=== PATIENT | male | born 1960 | race Caucasian/White ===

== ENCOUNTER → 2022-01-24 16:47 | Outpatient (CLI) | payer OTHER, SELFPAY ==
--- NOTE | 2022-01-24 16:54 | DI.RAD.S_ITS ---
PROCEDURE: XR CHEST 2V INDICATIONS: recurring cough, +reflux, +phlegm TECHNIQUE: 2 views of the chest were acquired. COMPARISON: None. FINDINGS: Surgical changes and devices: None. Lungs and pleura: Lungs are clear. No pleural effusions or pneumothorax. Mediastinum: Mediastinal contours are normal. Heart size is normal. Bones and chest wall: No suspicious bony abnormalities. Soft tissues appear unremarkable. IMPRESSION: No acute cardiopulmonary process demonstrated radiographically. Dictated by: Marbin Ramey M.D. on 01/25/2022 at 9:05 Approved by: Marbin Ramey M.D. on 01/25/2022 at 9:05
--- NOTE | 2022-01-24 16:54 | DI.RAD.S_ITS ---
PROCEDURE: XR LUMBAR SPINE 2-3V INDICATIONS: chronic right sided back pain, no sciatica TECHNIQUE: 3 views of the lumbar spine were acquired. COMPARISON: None. FINDINGS: Bones: There are 5 evt-azl-rvtubop lumbar vertebral bodies. Normal spinal alignment. No compression deformities. There is moderate diffuse intervertebral disc space narrowing, osteophytosis, and facet sclerosis. Soft tissues: Overlying bowel gas pattern is normal. No suspicious soft tissue calcifications. IMPRESSION: Moderate degenerative change. No compression deformities. Dictated by: Denita Wallace M.D. on 01/25/2022 at 10:56 Approved by: Denita Wallace M.D. on 01/25/2022 at 10:57
== END ==
PROVIDERS: PCP Pediatrics; Referring Provider Pediatrics; Visit Provider Pediatrics
DX: M54.9 Dorsalgia, unspecified (principal); R05.3 Chronic cough; M47.816 Spondylosis without myelopathy or radiculopathy, lumbar region
CPT/HCPCS: 71046; 72100

== ENCOUNTER → 2022-02-21 10:51 | Outpatient (CLI) | payer OTHER, SELFPAY ==
[2022-02-21 13:58] LABS: COVID19 -Nasal RAPID Negative (Negative)
== END ==
PROVIDERS: PCP Pediatrics; Visit Provider Surgery
DX: Z01.812 Encounter for preprocedural laboratory examination (principal); Z20.822 Contact with and (suspected) exposure to COVID-19
CPT/HCPCS: 87635; C9803

== ENCOUNTER 2022-02-22 13:04 | Day surgery (SDC) | payer OTHER, SELFPAY ==
--- NOTE | 2022-02-22 | PATH_ITS ---
[facility] Accession Number: [id number] . 01 Material submitted: . cecum - CECUM . 01 Diagnosis: Cecum, Biopsy: Tubular adenoma. MRV 02/24/2022 1053 Local . 01 Electronically signed: . Roselia Villanueva MD, Pathologist NPI- [id number] . 01 Gross description: . CECUM: Received in formalin are multiple fragment(s) of gaxiola, soft tissue measuring 0.5 x 0.5 x 0.1 cm in aggregate submitted entirely in 1 cassette(s) /CPE 02/23/2022 0500 Local . 01 Pathologist provided ICD-10: D12.0 . 01 CPT . 337936 Specimen Comment: A courtesy copy of this report has been sent to [phone] Performed at: 01 [facility] [address] [place] [address] [id number] MD Carrington Warner MD Phone: [phone]
[2022-02-22 13:46] VITALS: BMI 33.2
[2022-02-22 13:53] VITALS: BP 140/60; PULSE 63; RESP 12; TEMP 35.9; O2SAT 98
[2022-02-22] MEDS: FLEETS ENEMA 1 EACH PR (13:59)
--- NOTE | 2022-02-22 14:45 | P.HP_ITS ---
History of Present Illness History of Present Illness Date Patient Seen: 02/22/22 Time Patient Seen: 14:45 Chief complaint: SCREENING COLONOSCOPY Narrative: The patient presents for colorectal screening. Previous colonoscopy 7-10 years ago was normal. No personal or family history of colon cancer. On further history denies any recent gastrointestinal symptoms. No nausea, vomiting, abdominal pain, loss of appetite, unexplained weight loss, change in bowel hab its, diarrhea, constipation, melena, hematochezia, or bright red blood per rectum. Patient History Medical History Arthritis Asthma Back pain Chronic cough GERD (gastroesophageal reflux disease) Hypercholesteremia Hypertension MICHELLE (obstructive sleep apnea) Pre-diabetes Family & Social History Social History: household members none Tobacco & Substance use: Smoking Status Never smoker alcohol intake current alcohol intake frequency a few times a week Substance Use Type does not use Meds Home Medications and Allergies Home Medications Medication Instructions Recorded Confirmed Type amlodipine 5 mg tablet 5 mg PO DAILY 01/24/22 02/22/22 History atorvastatin 20 mg tablet 20 mg PO DAILY 01/24/22 02/22/22 History cimetidine 200 mg tablet (Tagamet 200 mg PO BID #60 tabs 01/24/22 02/22/22 Rx HB) loratadine 10 mg tablet (Claritin) 10 mg PO DAILY presumed allergic 01/24/22 02/22/22 Rx drip #30 tabs metformin 1,000 mg tablet 1,000 mg PO BID 01/24/22 02/22/22 History montelukast 10 mg tablet 10 mg PO DAILY 01/24/22 02/22/22 History omega-3 fatty acids [Fish Oil] 1 cap PO DAILY 01/24/22 02/22/22 History sildenafil (pulm.hypertension) 20 20 mg PO TID 01/24/22 02/22/22 History mg tablet trazodone 50 mg tablet 50 mg PO DAILY 01/24/22 01/24/22 History trazodone 50 mg tablet 50 mg PO DAILY 02/22/22 02/22/22 History Allergies Allergy/AdvReac Type Severity Reaction Status Date / Time No Known Drug Allergies Allergy Verified 02/22/22 13:52 Exam Vital Signs (past 8 hours): - 02/22/22 13:53 Temperature 96.7 F L Pulse Rate 63 Respiratory Rate 12 Blood Pressure 140/60 Pulse Oximetry 98 Oxygen Delivery Method Room Air Oxygen Delivery Method Room Air Narrative Exam Narrative: General adult male alert oriented no acute distress Chest nonlabored respiration Abdomen soft nontender nondistended Assessment & Plan Assessment & Plan narrative: The patient requires colorectal screening and colonoscopy is recommended. T echnical details were discussed. Risks, benefits, alternatives explained. Risks including but not limited to myocardial infarction, aspiration, bleeding, pain, missed lesion, incomplete examination, need for further radiographic studies, colonic perforation, and need for major abdominal surgery were discussed. All questions were answered to their satisfaction, and they are in agreement with this plan. Time Spent With Patient Critical Care time: I spent a total of [] minutes of critical care time on this patient's care today; this time is exclusive of procedural time.
--- NOTE | 2022-02-22 14:51 | SUR.PREOP ---
Addendum entered by Barbara Chambers R.N. 02/22/22 14:52: Patient was given the fleets enema as ordered. Results brownish yellow, not clear. Patient state that he did pass formed stool - unable to see it in the bowl. Patient was overheard to tell results to Dr. Aldridge prior to procedure. Original Note: Dr Aldridge informed of patient's intent to take a taxi home and that he states there is someone at home to help him. This was approved by prior to procedure and any medication.
[2022-02-22] MEDS: LACTATED RINGERS 1,000 ML 200 ML IV (15:00)
[2022-02-22] MEDS: fentaNYL 250 MCG/5 ML INJ IV (15:25)
--- NOTE | 2022-02-22 15:27 | PM.OP.COLON ---
Operative Date/Time/Diagnoses Date of procedure: 02/22/22 Time of procedure: 15:27 Pre-op diagnosis: Screening colonoscopy Post-op diagnosis: same Procedure & Clinicians Study performed: Colonoscopy and polypectomy Same procedure as scheduled: Yes Indications: Screening Surgeon: Manolo Aldridge Procedure Notes Procedure in detail: Medications: Conscious sedation using 7mg IV midazolam and 250mcg IV of fentanyl The history and physical was performed/updated and the patient is ASA class is 2. The procedure was discussed in detail with the patient. Potential risks complications including infection, bleeding, missed diagnosis, perforation, need for surgery, and were explained. Their questions were answered and informed consent was obtained. Patient was brought to the procedure room and placed standard monitoring equipment. The patient's vital signs were monitored continuously throughout the entire procedure. Prior to starting time-out was performed. The patient was placed in the left lateral recumbent position. Procedural sedation was administered. Examination began with a thorough inspection of the perianal area there was no evidence of fissures, fistulae, external hemorrhoids or cutaneous malignancy. The colonoscopy scope was then placed into the anal canal and was advanced to the cecum, which was identified by the ileocecal valve, the appendiceal orifice and the confluence of the taenia. The scope was then slowly withdrawn examining colon thoroughly in all directions, irrigating it of any residual stool. FINDINGS 1. Within the ascending colon/cecum there were 3 polyps of approximately 5 mm each which were removed with biopsy forceps. 2. Tortuous colon The patient tolerated the procedure well. They will be discharged once criteria are met. The prep was of fair quality. The withdrawl time was 12 minutes. The sedation time was 35 minutes. Specimen(s): other (Ascending colon polyp) Complications: none Impression: Colonic polyps Post-procedure Recommendations: Colonoscopy in 5 years Disposition: same day surgery
[2022-02-22 15:34] VITALS: BP 134/84; PULSE 63; RESP 16; TEMP 36.2; O2SAT 94
[2022-02-22] MEDS: MIDAZOLAM 5 MG/5 ML VIAL IV (15:35)
[2022-02-22 15:39] VITALS: BP 133/85; PULSE 72; RESP 17; O2SAT 94
[2022-02-22 15:51] VITALS: BP 136/87; PULSE 70; RESP 17; O2SAT 97
== END 2022-02-22 16:22 | disposition home or self-care (01) ==
PROVIDERS: PCP Pediatrics; Referring Provider Surgery; Visit Provider Surgery
PROC: 0DJD8ZZ Inspection of Lower Intestinal Tract, Via Natural or Artificial Opening Endoscopic (ICD-10-PCS; CPT 45378; principal; 2022-02-22 14:30)
DX: Z12.11 Encounter for screening for malignant neoplasm of colon (principal); D12.0 Benign neoplasm of cecum; K21.9 Gastro-esophageal reflux disease without esophagitis; G47.33 Obstructive sleep apnea (adult) (pediatric); I10 Essential (primary) hypertension; E78.00 Pure hypercholesterolemia, unspecified; R73.03 Prediabetes; Z79.84 Long term (current) use of oral hypoglycemic drugs
CPT/HCPCS: 45380; 99152; 99153; J2250; J3010

== ENCOUNTER → 2022-07-12 07:19 | Outpatient (CLI) | payer OTHER, SELFPAY ==
[2022-07-12 08:09] LABS: Hematocrit 39.8 % (41-53); Hemoglobin 13.7 g/dL (13.5-17.5); Mean Corpuscular HGB Conc 34.5 % (30-36); Mean Corpuscular Hemoglobin 30.6 PG (26-34); Mean Corpuscular Volume 88.8 fL (80-100); Platelet Count 239 X10^3/uL (150-400); Red Blood Cell Count 4.48 X10^6/uL (4.5-5.9); Red Cell Distribution Width 13.7 % (11.6-14.8); White Blood Cell Count 5.7 X10^3/uL (4.5-11.0)
[2022-07-12 08:29] LABS: HEMOLYSIS < 15 (0-50)
[2022-07-12 08:42] LABS: Alanine Aminotransferase 22 IU/L (<50); Albumin Globulin Ratio 1.6 (1.0-2.8); Alkaline Phosphatase 59 U/L (38-126); Aspartate Aminotransferase 18 IU/L (17-59); Bilirubin Total 0.5 mg/dL (0.2-1.3); Blood Urea Nitrogen 13 mg/dL (9-20); Calcium 8.7 mg/dL (8.4-10.2); Carbon Dioxide 28 mmol/L (22-32); Chloride 100 mmol/L (98-107); Cholesterol 149 mg/dL (140-199); Estimated Glomerular Filt Rate > 60 mL/min (>60); Globulin 2.5 g/dL (1.7-4.1); Glucose 143 mg/dL (80-110); HDL Cholesterol 55 mg/dL (40-60); LDL Cholesterol Calculated 67 mg/dL (<100); Potassium 4.3 mmol/L (3.4-5.1); Sodium 138 mmol/L (137-145); Total Protein 6.5 g/dL (6.3-8.2); Triglycerides 134 mg/dL (35-150)
[2022-07-12 09:24] LABS: TSH w/ Reflex to FT4 1.39 uIU/mL (0.47-4.68)
[2022-07-12 16:21] LABS: Prostate Specific Antigen Scrn 1.59 ng/mL (0.1-4.0)
[2022-07-12 18:03] LABS: Hemoglobin A1C% w Est Avg Glu 6.9 % (4.0-6.0)
== END ==
PROVIDERS: PCP Family Medicine; Referring Provider Family Medicine; Visit Provider Family Medicine
DX: E78.00 Pure hypercholesterolemia, unspecified (principal); I10 Essential (primary) hypertension; R53.83 Other fatigue; R73.03 Prediabetes; Z12.5 Encounter for screening for malignant neoplasm of prostate
CPT/HCPCS: 36415; 80053; 80061; 83036; 84443; 85027; G0103

== ENCOUNTER 2023-01-09 11:45 | Outpatient (RCR) | payer OTHER, SELFPAY ==
--- NOTE | 2022-12-12 10:50 | PT.OIE ---
Current Diagnoses Pain in right hip (12/12/22) Pain in left hip (12/12/22) Low back pain, unspecified (12/12/22) Past Medical History (Last Reviewed 10/17/22 @ 11:43 by PEDRO Saunders) Arthritis Asthma COVID-19 Environmental and seasonal allergies GERD (gastroesophageal reflux disease) Hypercholesteremia Hypertension MICHELLE (obstructive sleep apnea) Pre-diabetes Visit Care Team Role Provider Type Daphnie Ewing DO Attending Provider Physician Family Provider Primary Care Provider Referring Provider Specialty: Medical Address: [address] [place] [address], [address], [place], [address] Email: [email or web address] Physical Therapy Initial Evaluation PT-OP-A Visit Information Start: 12/08/22 18:32 Freq: Status: Active Protocol: Document 12/12/22 10:12 ES (Rec: 12/12/22 10:49 ES [id number]) Out-Patient Physical Therapy Visit Information Visit Information Visit Type Initial Evaluation Visit Note Auth needed after first 6 visits Visit Start Time 09:29 Visit Stop Time 10:10 Total Visit Minutes 41 Visit Number 1/6 Number of GRANITE BLOCK PAVER Visits 0 Evaluation Information Evaluation Date 12/12/22 PT-OP-B Current Condition Start: 12/08/22 18:32 Freq: Status: Active Protocol: Document 12/12/22 10:12 ES (Rec: 12/12/22 10:49 ES [id number]) Current Condition History of Current Condition Onset Date Several years ago Current Complaints R low back and B hip pain History of Current Condition Patient reported he has had back and hip pain for several years now, mostly unchanging. He reported [place] lived [place] about 4 months and would get spasms, but no other specific injury. 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 No hx of surgery. Patient reported his pain is worse with sitting and sleeping, and also with prolonged bending. He is limited to 1 hour of sitting. His pain is typically worst first thing in the morning. Sleeps on a Tempurpedic mattress which helps. He has tried putting pillows between his knees which seems to help but does not do it consistently. Soft chairs are worse than firm chairs. He does aquatic exercise, yoga, and fitness classes regularly. Prior Treatments and Tests Patient reported he went to PT about 8 years ago for this same problem which was helpful . He has a hx of arthritis in B hips but reports no imaging of his back. Treatment Goals Patient/Caregiver Goals To be able to sit on his computer with less pain. To have less pain getting out of bed in the mornings. PT-OP-C Subjective Start: 12/08/22 18:32 Freq: Status: Active Protocol: Document 12/12/22 10:12 ES (Rec: 12/12/22 10:49 ES [id number]) Patient Questionnaires Lower Extremity Functional Scale LEFS Score 64 LEFS Impairment 1 to 19% Impaired (Score 63-79 ) Oswestry Low Back Index Oswestry Score 9 Oswestry Impairment 1 to 19% Impaired (Score 1-19) PT-OP-J Posture/Palpation/Skin Start: 12/08/22 18:32 Freq: Status: Active Protocol: Document 12/12/22 10:12 ES (Rec: 12/12/22 10:49 ES [id number]) Posture Evaluation Position Standing Evaluation View Posterior T-Spine Posture Increased Kyphosis L-Spine Posture Shifted Left Shoulder Posture (L) Rounded,(R) Rounded,(L) Forward,(R) Forward Pelvis Posture Neutral Sitting Evaluation View Lateral T-Spine Posture Increased Kyphosis L-Spine Posture Decreased Lordosis Pelvis Posture Posterior Tilted Hip Posture (L) Flexed,(R) Flexed Skin Assessment Other Assessments Skin Assessment Comments Scar from tick infection at R lateral trunk just below ribs PT-OP-K Range of Motion Start: 12/08/22 18:32 Freq: Status: Active Protocol: Document 12/12/22 10:12 ES (Rec: 12/12/22 10:49 ES [id number]) Lumbar Spine Range of Motion Lumbar Spine Active Percentage Testing Position Standing Flexion 25 Extension 15 Rotation Left 25 Rotation Right 25 Lateral Flexion Left 10 Lateral Flexion Right 10 Comments R lumbar pain increased slightly with all movements. Tends to move in hips vs trunk . Limited thoracic motion noted also. PT-OP-Q Treatments Start: 12/08/22 18:32 Freq: Status: Active Protocol: Document 12/12/22 10:12 ES (Rec: 12/12/22 10:49 ES [id number]) Therapeutic Activity Therapeutic Activity 2 Name Log roll training Comments Instructed in log roll technique for getting in/out of bed with cues for reducing twisting/bending and abdominal strain. Patient demonstrated and handout provided. 1 Name Posture training Comments Instructed patient in correct sitting posture at computer to reduce posterior pelvic tilt and improve lordosis, with use of pillow behind back to assist. Patient demonstrated. Education on consistent use of pillow(s) between knees when lying on side. Attempted pillow under side but was not helpful. Patient demonstrated and handout provided. PT-OP-T Assessment and Plan Start: 12/08/22 18:32 Freq: Status: Active Protocol: Document 12/12/22 10:12 ES (Rec: 12/12/22 10:49 ES [id number]) Physical Therapy Assessment Rehab Potential Rehabilitation Potential Good Evaluation Complexity Number of Personal Factors/Comorbidities 0 Number of Body Systems Impaired 1-2 Clinical Presentation at Evaluation Stable Impairments Impairments Functional Activities,Pain, Posture,ROM,Soft Tissue Mobility,Strength Goals Three Impairment Bed mobility Bench Worker Goal (LTG) Patient will be able to get out of bed using log roll technique with 2/10 pain or less. LTG Duration 6 weeks Two Impairment ROM and strength Short Term Goal (STG) Patient will be independent in HEP for spine/hip mobility and core strength. STG Duration 4 weeks One Impairment Sitting tolerance Usp Goal (LTG) Patient will be able to sit for 1 hour with 2/10 pain at worst. LTG Duration 6 weeks Assessment Summary Assessment Patient is a 62 year old male who presents with R low back and B hip pain. He demonstrates non-ideal sitting and sleeping posture and body mechanics for bed mobility, general decreased ROM thoracic and lumbar spine, and decreased core strength when attempting supine to sit. He is functionally limited with sitting, sleeping, getting out of bed, and bending. He will benefit from PT to address these problems in order to reduce pain with daily activity. Physical Therapy Plan Frequency and Duration Frequency of Treatment 1x/Week Duration of treatment (weeks) 6 Plan of Care Start Date 12/12/22 Plan of Care End Date 01/23/23
--- NOTE | 2022-12-12 10:56 | PT.OIE ---
Current Diagnoses Pain in right hip (12/12/22) Pain in left hip (12/12/22) Low back pain, unspecified (12/12/22) Past Medical History (Last Reviewed 10/17/22 @ 11:43 by PEDRO Saunders) Arthritis Asthma COVID-19 Environmental and seasonal allergies GERD (gastroesophageal reflux disease) Hypercholesteremia Hypertension MICHELLE (obstructive sleep apnea) Pre-diabetes Visit Care Team Role Provider Type Daphnie Ewing DO Attending Provider Physician Family Provider Primary Care Provider Referring Provider Specialty: Medical Address: [address] [place] [address], [address], [place], [address] Email: [email or web address] Physical Therapy Initial Evaluation PT-OP-A Visit Information Start: 12/08/22 18:32 Freq: Status: Active Protocol: Document 12/12/22 10:12 ES (Rec: 12/12/22 10:49 ES [id number]) Out-Patient Physical Therapy Visit Information Visit Information Visit Type Initial Evaluation Visit Note Auth needed after first 6 visits Visit Start Time 09:29 Visit Stop Time 10:10 Total Visit Minutes 41 Visit Number 1/6 Number of OLERICULTURIST Visits 0 Evaluation Information Evaluation Date 12/12/22 PT-OP-B Current Condition Start: 12/08/22 18:32 Freq: Status: Active Protocol: Document 12/12/22 10:12 ES (Rec: 12/12/22 10:49 ES [id number]) Current Condition History of Current Condition Onset Date Several years ago Current Complaints R low back and B hip pain History of Current Condition Patient reported he has had back and hip pain for several years now, mostly unchanging. He reported he lived on a boat for about 4 months and would get spasms, but no other specific injury. 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 No hx of surgery. Patient reported his pain is worse with sitting and sleeping, and also with prolonged bending. He is limited to 1 hour of sitting. His pain is typically worst first thing in the morning. Sleeps on a Tempurpedic mattress which helps. He has tried putting pillows between his knees which seems to help but does not do it consistently. Soft chairs are worse than firm chairs. He does aquatic exercise, yoga, and fitness classes regularly. Prior Treatments and Tests Patient reported he went to PT about 8 years ago for this same problem which was helpful . He has a hx of arthritis in B hips but reports no imaging of his back. Treatment Goals Patient/Caregiver Goals To be able to sit on his computer with less pain. To have less pain getting out of bed in the mornings. PT-OP-C Subjective Start: 12/08/22 18:32 Freq: Status: Active Protocol: Document 12/12/22 10:12 ES (Rec: 12/12/22 10:49 ES [id number]) Patient Questionnaires Lower Extremity Functional Scale LEFS Score 64 LEFS Impairment 1 to 19% Impaired (Score 63-79 ) Oswestry Low Back Index Oswestry Score 9 Oswestry Impairment 1 to 19% Impaired (Score 1-19) PT-OP-J Posture/Palpation/Skin Start: 12/08/22 18:32 Freq: Status: Active Protocol: Document 12/12/22 10:12 ES (Rec: 12/12/22 10:49 ES [id number]) Posture Evaluation Position Standing Evaluation View Posterior T-Spine Posture Increased Kyphosis L-Spine Posture Shifted Left Shoulder Posture (L) Rounded,(R) Rounded,(L) Forward,(R) Forward Pelvis Posture Neutral Sitting Evaluation View Lateral T-Spine Posture Increased Kyphosis L-Spine Posture Decreased Lordosis Pelvis Posture Posterior Tilted Hip Posture (L) Flexed,(R) Flexed Skin Assessment Other Assessments Skin Assessment Comments Scar from tick infection at R lateral trunk just below ribs PT-OP-K Range of Motion Start: 12/08/22 18:32 Freq: Status: Active Protocol: Document 12/12/22 10:12 ES (Rec: 12/12/22 10:49 ES [id number]) Lumbar Spine Range of Motion Lumbar Spine Active Percentage Testing Position Standing Flexion 25 Extension 15 Rotation Left 25 Rotation Right 25 Lateral Flexion Left 10 Lateral Flexion Right 10 Comments R lumbar pain increased slightly with all movements. Tends to move in hips vs trunk . Limited thoracic motion noted also. PT-OP-Q Treatments Start: 12/08/22 18:32 Freq: Status: Active Protocol: Document 12/12/22 10:12 ES (Rec: 12/12/22 10:49 ES [id number]) Therapeutic Activity Therapeutic Activity 2 Name Log roll training Comments Instructed in log roll technique for getting in/out of bed with cues for reducing twisting/bending and abdominal strain. Patient demonstrated and handout provided. 1 Name Posture training Comments Instructed patient in correct sitting posture at computer to reduce posterior pelvic tilt and improve lordosis, with use of pillow behind back to assist. Patient demonstrated. Education on consistent use of pillow(s) between knees when lying on side. Attempted pillow under side but was not helpful. Patient demonstrated and handout provided. PT-OP-T Assessment and Plan Start: 12/08/22 18:32 Freq: Status: Active Protocol: Document 12/12/22 10:12 ES (Rec: 12/12/22 10:49 ES [id number]) Physical Therapy Assessment Rehab Potential Rehabilitation Potential Good Evaluation Complexity Number of Personal Factors/Comorbidities 0 Number of Body Systems Impaired 1-2 Clinical Presentation at Evaluation Stable Impairments Impairments Functional Activities,Pain, Posture,ROM,Soft Tissue Mobility,Strength Goals Three Impairment Bed mobility Funding Specialist Goal (LTG) Patient will be able to get out of bed using log roll technique with 2/10 pain or less. LTG Duration 6 weeks Two Impairment ROM and strength Short Term Goal (STG) Patient will be independent in HEP for spine/hip mobility and core strength. STG Duration 4 weeks One Impairment Sitting tolerance Fdc Goal (LTG) Patient will be able to sit for 1 hour with 2/10 pain at worst. LTG Duration 6 weeks Assessment Summary Assessment Patient is a 62 year old male who presents with R low back and B hip pain. He demonstrates non-ideal sitting and sleeping posture and body mechanics for bed mobility, general decreased ROM thoracic and lumbar spine, and decreased core strength when attempting supine to sit. He is functionally limited with sitting, sleeping, getting out of bed, and bending. He will benefit from PT to address these problems in order to reduce pain with daily activity. Physical Therapy Plan Frequency and Duration Frequency of Treatment 1x/Week Duration of treatment (weeks) 6 Plan of Care Start Date 12/12/22 Plan of Care End Date 01/23/23 Therapeutic Interventions Therapeutic Interventions Home Exercise Program,Joint Mobilizations,Manual Therapy, Neuromuscular Re-education, Patient/Caregiver Education, Self-Care/Home Management,Soft Tissue Mobilization, Therapeutic Activities, Therapeutic Exercises Modalities Hot Packs Next Visit Focus/Plan Next Note Type Treatment Note Next Visit Plan Review posture/bed mobility. Assess ROM/strength and progress HEP.
--- NOTE | 2022-12-12 10:56 | PT.OPPOC ---
Physical, Occupational & Speech Therapy At [facility] Current Diagnoses Pain in right hip (12/12/22) Pain in left hip (12/12/22) Low back pain, unspecified (12/12/22) Visit Care Team Role Provider Type Daphnie Ewing DO Attending Provider Physician Family Provider Primary Care Provider Referring Provider Specialty: Medical Address: [address] [place] [address], [address], [place], [address] Email: [email or web address] Plan Of Care PT-OP-T Assessment and Plan Start: 12/08/22 18:32 Freq: Status: Active Protocol: Document 12/12/22 10:12 ES (Rec: 12/12/22 10:49 ES [id number]) Physical Therapy Assessment Rehab Potential Rehabilitation Potential Good Evaluation Complexity Number of Personal Factors/Comorbidities 0 Number of Body Systems Impaired 1-2 Clinical Presentation at Evaluation Stable Impairments Impairments Functional Activities,Pain, Posture,ROM,Soft Tissue Mobility,Strength Goals Three Impairment Bed mobility Astrophysics Teacher Goal (LTG) Patient will be able to get out of bed using log roll technique with 2/10 pain or less. LTG Duration 6 weeks Two Impairment ROM and strength Short Term Goal (STG) Patient will be independent in HEP for spine/hip mobility and core strength. STG Duration 4 weeks One Impairment Sitting tolerance Astrophysics Teacher Goal (LTG) Patient will be able to sit for 1 hour with 2/10 pain at worst. LTG Duration 6 weeks Assessment Summary Assessment Patient is a 62 year old male who presents with R low back and B hip pain. He demonstrates non-ideal sitting and sleeping posture and body mechanics for bed mobility, general decreased ROM thoracic and lumbar spine, and decreased core strength when attempting supine to sit. He is functionally limited with sitting, sleeping, getting out of bed, and bending. He will benefit from PT to address these problems in order to reduce pain with daily activity. Physical Therapy Plan Frequency and Duration Frequency of Treatment 1x/Week Duration of treatment (weeks) 6 Plan of Care Start Date 12/12/22 Plan of Care End Date 01/23/23 Therapeutic Interventions Therapeutic Interventions Home Exercise Program,Joint Mobilizations,Manual Therapy, Neuromuscular Re-education, Patient/Caregiver Education, Self-Care/Home Management,Soft Tissue Mobilization, Therapeutic Activities, Therapeutic Exercises Modalities Hot Packs Next Visit Focus/Plan Next Note Type Treatment Note Next Visit Plan Review posture/bed mobility. Assess ROM/strength and progress HEP. Plan of Care Dates Plan of Care Start Date 12/12/22 Plan of Care End Date 01/23/23 Electronically Signed by: Emerald Cason, PT 12/12/22 6264 If you are in agreement with this Plan of Care, please return a signed and dated copy. I have reviewed this Plan of Care and certify that the skilled therapy services above are required to meet the patient?s needs. Physician Signature Date Printed Name and Credentials Clinical Instructor Signature Printed Name and Credentials
--- NOTE | 2022-12-12 15:11 | PT.OIE ---
Current Diagnoses Pain in right hip (12/12/22) Pain in left hip (12/12/22) Low back pain, unspecified (12/12/22) Past Medical History (Last Reviewed 10/17/22 @ 11:43 by PEDRO Saunders) Arthritis Asthma COVID-19 Environmental and seasonal allergies GERD (gastroesophageal reflux disease) Hypercholesteremia Hypertension MICHELLE (obstructive sleep apnea) Pre-diabetes Visit Care Team Role Provider Type Daphnie Ewing DO Attending Provider Physician Family Provider Primary Care Provider Referring Provider Specialty: Medical Address: [address] [place] [address], [address], [place], [address] Email: [email or web address] Physical Therapy Initial Evaluation PT-OP-A Visit Information Start: 12/08/22 18:32 Freq: Status: Active Protocol: Document 12/12/22 10:12 ES (Rec: 12/12/22 10:49 ES [id number]) Out-Patient Physical Therapy Visit Information Visit Information Visit Type Initial Evaluation Visit Start Time 09:29 Visit Stop Time 10:10 Total Visit Minutes 41 Visit Number 08/21 Number of ACCELERATOR OPERATOR Visits 0 Evaluation Information Evaluation Date 12/12/22 PT-OP-B Current Condition Start: 12/08/22 18:32 Freq: Status: Active Protocol: Document 12/12/22 10:12 ES (Rec: 12/12/22 10:49 ES [id number]) Current Condition History of Current Condition Onset Date Several years ago Current Complaints R low back and B hip pain History of Current Condition Patient reported he has had back and hip pain for several years now, mostly unchanging. He reported [place] and would get spasms, but no other specific injury. 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 No hx of surgery. Patient reported his pain is worse with sitting and sleeping, and also with prolonged bending. He is limited to 1 hour of sitting. His pain is typically worst first thing in the morning. Sleeps on a Tempurpedic mattress which helps. He has tried putting pillows between his knees which seems to help but does not do it consistently. Soft chairs are worse than firm chairs. He does aquatic exercise, yoga, and fitness classes regularly. Prior Treatments and Tests Patient reported he went to PT about 8 years ago for this same problem which was helpful . He has a hx of arthritis in B hips but reports no imaging of his back. Treatment Goals Patient/Caregiver Goals To be able to sit on his computer with less pain. To have less pain getting out of bed in the mornings. PT-OP-C Subjective Start: 12/08/22 18:32 Freq: Status: Active Protocol: Document 12/12/22 10:12 ES (Rec: 12/12/22 10:49 ES [id number]) Patient Questionnaires Lower Extremity Functional Scale LEFS Score 64 LEFS Impairment 1 to 19% Impaired (Score 63-79 ) Oswestry Low Back Index Oswestry Score 9 Oswestry Impairment 1 to 19% Impaired (Score 1-19) PT-OP-J Posture/Palpation/Skin Start: 12/08/22 18:32 Freq: Status: Active Protocol: Document 12/12/22 10:12 ES (Rec: 12/12/22 10:49 ES [id number]) Posture Evaluation Position Standing Evaluation View Posterior T-Spine Posture Increased Kyphosis L-Spine Posture Shifted Left Shoulder Posture (L) Rounded,(R) Rounded,(L) Forward,(R) Forward Pelvis Posture Neutral Sitting Evaluation View Lateral T-Spine Posture Increased Kyphosis L-Spine Posture Decreased Lordosis Pelvis Posture Posterior Tilted Hip Posture (L) Flexed,(R) Flexed Skin Assessment Other Assessments Skin Assessment Comments Scar from tick infection at R lateral trunk just below ribs PT-OP-K Range of Motion Start: 12/08/22 18:32 Freq: Status: Active Protocol: Document 12/12/22 10:12 ES (Rec: 12/12/22 10:49 ES [id number]) Lumbar Spine Range of Motion Lumbar Spine Active Percentage Testing Position Standing Flexion 25 Extension 15 Rotation Left 25 Rotation Right 25 Lateral Flexion Left 10 Lateral Flexion Right 10 Comments R lumbar pain increased slightly with all movements. Tends to move in hips vs trunk . Limited thoracic motion noted also. PT-OP-Q Treatments Start: 12/08/22 18:32 Freq: Status: Active Protocol: Document 12/12/22 10:12 ES (Rec: 12/12/22 10:49 ES [id number]) Therapeutic Activity Therapeutic Activity 2 Name Log roll training Comments Instructed in log roll technique for getting in/out of bed with cues for reducing twisting/bending and abdominal strain. Patient demonstrated and handout provided. 1 Name Posture training Comments Instructed patient in correct sitting posture at computer to reduce posterior pelvic tilt and improve lordosis, with use of pillow behind back to assist. Patient demonstrated. Education on consistent use of pillow(s) between knees when lying on side. Attempted pillow under side but was not helpful. Patient demonstrated and handout provided. PT-OP-T Assessment and Plan Start: 12/08/22 18:32 Freq: Status: Active Protocol: Document 12/12/22 10:12 ES (Rec: 12/12/22 10:49 ES [id number]) Physical Therapy Assessment Rehab Potential Rehabilitation Potential Good Evaluation Complexity Number of Personal Factors/Comorbidities 0 Number of Body Systems Impaired 1-2 Clinical Presentation at Evaluation Stable Impairments Impairments Functional Activities,Pain, Posture,ROM,Soft Tissue Mobility,Strength Goals Three Impairment Bed mobility Print Machine Operator Goal (LTG) Patient will be able to get out of bed using log roll technique with 2/10 pain or less. LTG Duration 6 weeks Two Impairment ROM and strength Short Term Goal (STG) Patient will be independent in HEP for spine/hip mobility and core strength. STG Duration 4 weeks One Impairment Sitting tolerance Print Machine Operator Goal (LTG) Patient will be able to sit for 1 hour with 2/10 pain at worst. LTG Duration 6 weeks Assessment Summary Assessment Patient is a 62 year old male who presents with R low back and B hip pain. He demonstrates non-ideal sitting and sleeping posture and body mechanics for bed mobility, general decreased ROM thoracic and lumbar spine, and decreased core strength when attempting supine to sit. He is functionally limited with sitting, sleeping, getting out of bed, and bending. He will benefit from PT to address these problems in order to reduce pain with daily activity. Physical Therapy Plan Frequency and Duration Frequency of Treatment 1x/Week Duration of treatment (weeks) 6 Plan of Care Start Date 12/12/22 Plan of Care End Date 01/23/23 Therapeutic Interventions Therapeutic Interventions Home Exercise Program,Joint Mobilizations,Manual Therapy, Neuromuscular Re-education, Patient/Caregiver Education, Self-Care/Home Management,Soft Tissue Mobilization, Therapeutic Activities, Therapeutic Exercises Modalities Hot Packs Next Visit Focus/Plan Next Note Type Treatment Note Next Visit Plan Review posture/bed mobility. Assess ROM/strength and progress HEP.
--- NOTE | 2022-12-19 14:00 | PT.OTN ---
Current Diagnoses Pain in right hip (12/19/22) Pain in left hip (12/19/22) Low back pain, unspecified (12/19/22) Physical Therapy Treatment Note PT-OP-A Visit Information Start: 12/08/22 18:32 Freq: Status: Active Protocol: Document 12/19/22 10:49 ES (Rec: 12/19/22 12:34 ES [id number]) Out-Patient Physical Therapy Visit Information Visit Information Visit Type Treatment Note Visit Start Time 11:54 Visit Stop Time 12:30 Total Visit Minutes 36 Visit Number 2/ Number of CPC CODER Visits 0 Evaluation Information Evaluation Date 12/12/22 PT-OP-C Subjective Start: 12/08/22 18:32 Freq: Status: Active Protocol: Document 12/19/22 10:49 ES (Rec: 12/19/22 12:34 ES [id number]) OP-PT Subjective Patient Comments Patient Comments Patient reported that using the pillow between the knees and log roll have been helping with pain in the morning. Put a pillow behind his back in his chair and that seems to help. Patient reported his pain is overall less, with fewer incidences of pain. Patient stated that when he's in the pool he has increased pain with jarring motions, such as doing jumping jacks. Patient Reported Progress Improving PT-OP-M Strength Start: 12/08/22 18:32 Freq: Status: Active Protocol: Document 12/19/22 10:49 ES (Rec: 12/19/22 13:53 ES [id number]) Trunk Strength Trunk Manual Muscle Testing Core Stabilization Decreased lower abdominal control noted with bridging, LE movement Comments Lower abdominals 1/5 Hip Strength Hip Manual Muscle Testing Right Extension (S1) 4 Good Abduction 4- Good- Left Extension (S1) 4- Good- Abduction 3+ Fair+ PT-OP-Q Treatments Start: 12/08/22 18:32 Freq: Status: Active Protocol: Document 12/19/22 10:49 ES (Rec: 12/19/22 13:53 ES [id number]) Therapeutic Exercises Supine Exercises 1 Supine Exercise Name Bridging with hip abduction Resistance Blue band Reps/Minutes [id number] Comments Instructed for home Sidelying Exercises 1 Sidelying Exercise Name Open book Reps/Minutes 3x30s Comments Instructed for home Other Exercises 1 Other Exercise Name Aquatic exercise education Comments Instruction to monitor for hip vs spine movement in pool PT-OP-T Assessment and Plan Start: 12/08/22 18:32 Freq: Status: Active Protocol: Document 12/19/22 10:49 ES (Rec: 12/19/22 12:34 ES [id number]) Physical Therapy Assessment Goals Three Impairment Bed mobility Quilt Maker Goal (LTG) Patient will be able to get out of bed using log roll technique with 2/10 pain or less. LTG Duration 6 weeks Two Impairment ROM and strength Short Term Goal (STG) Patient will be independent in HEP for spine/hip mobility and core strength. STG Duration 4 weeks One Impairment Sitting tolerance Longterm Goal (LTG) Patient will be able to sit for 1 hour with 2/10 pain at worst. LTG Duration 6 weeks Progress Towards Goals Progress Towards Goals Progressing Toward Goals Assessment Summary Assessment Patient demonstrated decreased core strength and stabilization, decreased L>R glute strength, and decreased length L hip flexors as evidenced by lumbar rotation and hip flexion during prone knee bend. Patient able to perform new ex's without increase in pain. He will benefit from further PT to assess and progress HEP to improve spinal flexibility, core strength, and hip strength to reduce pain. Physical Therapy Plan Next Visit Focus/Plan Next Note Type Treatment Note Next Visit Plan Review HEP additions; progress glute strength, add hip flexor stretch as indicated.
--- NOTE | 2022-12-26 12:27 | PT.OTN ---
Current Diagnoses Pain in right hip (12/26/22) Pain in left hip (12/26/22) Low back pain, unspecified (12/26/22) Physical Therapy Treatment Note PT-OP-A Visit Information Start: 12/08/22 18:32 Freq: Status: Active Protocol: Document 12/26/22 10:32 ES (Rec: 12/26/22 12:26 ES [id number]) Out-Patient Physical Therapy Visit Information Visit Information Visit Type Treatment Note Visit Start Time 11:42 Visit Stop Time 12:20 Total Visit Minutes 38 Visit Number 3/15 Number of CLAM DIGGER Visits 0 PT-OP-C Subjective Start: 12/08/22 18:32 Freq: Status: Active Protocol: Document 12/26/22 10:32 ES (Rec: 12/26/22 12:26 ES [id number]) OP-PT Subjective Patient Comments Patient Comments Patient reported that he continues to be having less pain, and the exercises have been helpful. Wants to go over the new open book exercise again to make sure he's doing it right. Will be traveling to [facility] after the next visit which is scheduled for 2 weeks from today. Patient Reported Progress Improving PT-OP-Q Treatments Start: 12/08/22 18:32 Freq: Status: Active Protocol: Document 12/26/22 10:32 ES (Rec: 12/26/22 12:26 ES [id number]) Therapeutic Exercises Supine Exercises 3 Supine Exercise Name Supine HS stretch Side bilateral Reps/Minutes 3x30s Comments Added to HEP (see handout) 2 Supine Exercise Name Figure 4 stretch Side bilateral Reps/Minutes 3x30s Comments Added to HEP (see handout) Sidelying Exercises 1 Sidelying Exercise Name Open book Side bilateral Reps/Minutes x30s Comments Reviewed; patient demonstrated , cued for positioning PT-OP-T Assessment and Plan Start: 12/08/22 18:32 Freq: Status: Active Protocol: Document 12/26/22 10:32 ES (Rec: 12/26/22 12:26 ES [id number]) Physical Therapy Assessment Goals Three Impairment Bed mobility Mcc Goal (LTG) Patient will be able to get out of bed using log roll technique with 2/10 pain or less. LTG Duration 6 weeks Two Impairment ROM and strength Short Term Goal (STG) Patient will be independent in HEP for spine/hip mobility and core strength. STG Duration 4 weeks One Impairment Sitting tolerance Senior Principal Goal (LTG) Patient will be able to sit for 1 hour with 2/10 pain at worst. LTG Duration 6 weeks Progress Towards Goals Progress Towards Goals Progressing Toward Goals Assessment Summary Assessment Patient demonstrated decreased flexibility of L>R piriformis and HS, with early pelvic posterior and lateral tilt with hip flexion and passive SLR which is likely contributing to increased back pain with sitting. He was able to achieve stretch without pain with new stretches for home. He is making good progress toward goals, and may be appropriate to d/c to independent program at next visit if all goals met . Physical Therapy Plan Next Visit Focus/Plan Next Note Type Discharge Summary Next Visit Plan Patient will be leaving for [facility] after next visit; plan to d/c to independent program.
--- NOTE | 2023-01-09 12:22 | PT.OPDS ---
Current Diagnoses Pain in right hip (01/09/23) Pain in left hip (01/09/23) Low back pain, unspecified (01/09/23) Visit Care Team Role Provider Type Daphnie Ewing DO Attending Provider Physician Family Provider Primary Care Provider Referring Provider Specialty: Medical Address: [address] [place] [address], [address], [place], [address] Email: [email or web address] Visit Number Visit Number 11/19 Discharge Summary PT-OP-C Subjective Start: 12/08/22 18:32 Freq: Status: Active Protocol: Document 01/09/23 11:46 ES (Rec: 01/09/23 12:22 ES [id number]) OP-PT Subjective Patient Comments Patient Comments Patient reports that overall things are going well. Has been more active lately and has been doing his exercises. Noticed that he didn't wake up due to his pain at all last night. Still has some pain every once in a while with sitting on soft couches, 2-3/ 10 after 2 hours. Able to sit in his chair at home for at least an hour without pain. Is leaving on a trip next week and will be carrying luggage and sitting on trains. Patient Reported Progress Improving Patient Questionnaires Oswestry Low Back Index Oswestry Score 6 Oswestry Impairment 1 to 19% Impaired (Score 1-19) PT-OP-T Assessment and Plan Start: 12/08/22 18:32 Freq: Status: Active Protocol: Document 01/09/23 11:46 ES (Rec: 01/09/23 12:22 ES [id number]) Physical Therapy Assessment Goals Three Impairment Bed mobility Pool Coordinator Goal (LTG) Patient will be able to get out of bed using log roll technique with 2/10 pain or less. LTG Duration 6 weeks (Met 01/09/23) Two Impairment ROM and strength Short Term Goal (STG) Patient will be independent in HEP for spine/hip mobility and core strength. STG Duration 4 weeks (Met 01/09/23) One Impairment Sitting tolerance Halfway Goal (LTG) Patient will be able to sit for 1 hour with 2/10 pain at worst. LTG Duration 6 weeks (Met 01/09/23) Progress Towards Goals Progress Towards Goals Goals Met Assessment Summary Assessment Patient demonstrates decreased pain, improved sitting tolerance, and good compliance with HEP. He scored lower on Oswestry indicating improved function. He was able to demonstrate lifting mechanics with improved hip hinge and lordosis with today's training . He has met all goals and is appropriate to d/c at this time. Physical Therapy Plan Discharge Physical Therapy Discharge Reasons Goals Met
--- NOTE | 2023-01-09 12:25 | PT.OTN ---
Current Diagnoses Pain in right hip (01/09/23) Pain in left hip (01/09/23) Low back pain, unspecified (01/09/23) Physical Therapy Treatment Note PT-OP-A Visit Information Start: 12/08/22 18:32 Freq: Status: Active Protocol: Document 01/09/23 11:46 ES (Rec: 01/09/23 12:22 ES [id number]) Out-Patient Physical Therapy Visit Information Visit Information Visit Type Discharge Summary Visit Start Time 11:45 Visit Stop Time 12:14 Total Visit Minutes 29 Visit Number 4/15 Number of CYBER INCIDENT ANALYST Visits 0 PT-OP-C Subjective Start: 12/08/22 18:32 Freq: Status: Active Protocol: Document 01/09/23 11:46 ES (Rec: 01/09/23 12:22 ES [id number]) OP-PT Subjective Patient Comments Patient Comments Patient reports that overall things are going well. Has been more active lately and has been doing his exercises. Noticed that he didn't wake up due to his pain at all last night. Still has some pain every once in a while with sitting on soft couches, 2-3/ 10 after 2 hours. Able to sit in his chair at home for at least an hour without pain. Is leaving on a trip next week and will be carrying luggage and sitting on trains. Patient Reported Progress Improving Patient Questionnaires Oswestry Low Back Index Oswestry Score 6 Oswestry Impairment 1 to 19% Impaired (Score 1-19) PT-OP-Q Treatments Start: 12/08/22 18:32 Freq: Status: Active Protocol: Document 01/09/23 11:46 ES (Rec: 01/09/23 12:22 ES [id number]) Neuro Re-Education Treatment Movement Re-Education Movement Re-education Activities Lifting mechanics training for floor to waist lift with up to 20lbs with cues for maintaining lordosis using hip hinge. Training for getting in/out of car with maintaining lordosis . Training for lifting bags up/ down stairs with cues for avoiding twisting and sidebending. PT-OP-T Assessment and Plan Start: 12/08/22 18:32 Freq: Status: Active Protocol: Document 01/09/23 11:46 ES (Rec: 01/09/23 12:22 ES [id number]) Physical Therapy Assessment Goals Three Impairment Bed mobility Centrifugal Chiller Technician Goal (LTG) Patient will be able to get out of bed using log roll technique with 2/10 pain or less. LTG Duration 6 weeks (Met 01/09/23) Two Impairment ROM and strength Short Term Goal (STG) Patient will be independent in HEP for spine/hip mobility and core strength. STG Duration 4 weeks (Met 01/09/23) One Impairment Sitting tolerance Centrifugal Chiller Technician Goal (LTG) Patient will be able to sit for 1 hour with 2/10 pain at worst. LTG Duration 6 weeks (Met 01/09/23) Progress Towards Goals Progress Towards Goals Goals Met Assessment Summary Assessment Patient demonstrates decreased pain, improved sitting tolerance, and good compliance with HEP. He scored lower on Oswestry indicating improved function. He was able to demonstrate lifting mechanics with improved hip hinge and lordosis with today's training . He has met all goals and is appropriate to d/c at this time. Physical Therapy Plan Discharge Physical Therapy Discharge Reasons Goals Met
== END 2023-01-10 12:03 | disposition home or self-care (01) ==
LOC: PHYS 11:45
PROVIDERS: Family Provider Family Medicine; PCP Family Medicine; Referring Provider Family Medicine; Visit Provider Family Medicine
DX: M25.551 Pain in right hip (principal); M25.552 Pain in left hip; M54.50 Low back pain, unspecified
CPT/HCPCS: 97110; 97112; 97161; 97530

== ENCOUNTER → 2023-10-12 07:11 | Outpatient (CLI) | payer OTHER, SELFPAY ==
[2023-10-12 07:38] LABS: Add Manual Diff / Slide Review NO; Basophils Absolute Auto 0 /uL (0-100); Basophils Percent Auto 0.6 % (0-2); Eosinophils Absolute Auto 100 /uL (0-450); Eosinophils Percent Auto 1.9 % (2-4); Hematocrit 38.4 % (41-53); Hemoglobin 13.4 g/dL (13.5-17.5); Lymphocytes Absolute Auto 1600 /uL (1100-4500); Lymphocytes Percent Auto 30.9 % (25-40); Mean Corpuscular HGB Conc 34.8 % (30-36); Mean Corpuscular Hemoglobin 31.5 PG (26-34); Mean Corpuscular Volume 90.4 fL (80-100); Monocytes Absolute Auto 400 /uL (0-900); Monocytes Percent Auto 7.8 % (3-14); Neutrophils Absolute Auto 3100 /uL (1500-7000); Neutrophils Percent Auto 58.8 % (50-75); Platelet Count 223 X10^3/uL (150-400); Red Blood Cell Count 4.25 X10^6/uL (4.5-5.9); Red Cell Distribution Width 13.7 % (11.6-14.8); White Blood Cell Count 5.2 X10^3/uL (4.5-11.0)
[2023-10-12 07:58] LABS: Alanine Aminotransferase 25 IU/L (<50); Albumin 3.8 g/dL (3.5-5.0); Albumin Globulin Ratio 1.5 (1.0-2.8); Alkaline Phosphatase 60 U/L (38-126); Aspartate Aminotransferase 22 IU/L (17-59); BUN Creatinine Ratio 15.8 (6-22); Bilirubin Total 0.7 mg/dL (0.2-1.3); Blood Urea Nitrogen 12 mg/dL (9-20); Calcium 9.2 mg/dL (8.4-10.2); Carbon Dioxide 28 mmol/L (22-32); Chloride 106 mmol/L (98-107); Cholesterol 153 mg/dL (140-199); Estimated Glomerular Filt Rate > 60 mL/min (>60); Globulin 2.6 g/dL (1.7-4.1); Glucose 133 mg/dL (80-110); HDL Cholesterol 56 mg/dL (40-60); HEMOLYSIS < 15 (0-50); LDL Cholesterol Calculated 77 mg/dL (<100); Potassium 4.3 mmol/L (3.4-5.1); Sodium 140 mmol/L (137-145); Total Protein 6.4 g/dL (6.3-8.2); Triglycerides 99 mg/dL (35-150)
[2023-10-12 08:15] LABS: High Sensitivity CRP - Cardiac 3.3 mg/L (1.0-3.0)
[2023-10-12 08:28] LABS: Prostate Specific Antigen Scrn 1.56 ng/mL (0.1-4.0)
[2023-10-12 09:09] LABS: Creatinine Urine Random 124.9 mg/dL
[2023-10-12 09:23] LABS: Microalbumin Urine Random < 0.6 mg/dL (0-1.6)
== END ==
PROVIDERS: Family Provider Family Medicine; PCP Family Medicine; Referring Provider Family Medicine; Visit Provider Family Medicine
DX: Z12.5 Encounter for screening for malignant neoplasm of prostate (principal); D64.9 Anemia, unspecified; E11.40 Type 2 diabetes mellitus with diabetic neuropathy, unspecified; E11.69 Type 2 diabetes mellitus with other specified complication; E11.59 Type 2 diabetes mellitus with other circulatory complications; E66.9 Obesity, unspecified; I10 Essential (primary) hypertension; E78.00 Pure hypercholesterolemia, unspecified; E11.9 Type 2 diabetes mellitus without complications; I15.2 Hypertension secondary to endocrine disorders
CPT/HCPCS: 36415; 80053; 80061; 82043; 82570; 83036; 85025; 86140; G0103

== ENCOUNTER → 2024-09-06 10:27 | Outpatient (CLI) | payer OTHER, SELFPAY ==
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
== END ==
PROVIDERS: Family Provider Family Medicine; PCP Family Medicine; Referring Provider Family Medicine; Visit Provider Family Medicine
DX: Z12.2 Encounter for screening for malignant neoplasm of respiratory organs (principal); R05.3 Chronic cough; X08.8XXS Exposure to other specified smoke, fire and flames, sequela; R91.8 Other nonspecific abnormal finding of lung field
CPT/HCPCS: 71271

== ENCOUNTER → 2024-09-07 11:00 | Outpatient (CLI) | payer OTHER, SELFPAY ==
[2024-09-07 12:42] LABS: Add Manual Diff / Slide Review NO; Basophils Absolute Auto 0 /uL (0-100); Basophils Percent Auto 0.4 % (0-2); Eosinophils Absolute Auto 100 /uL (0-450); Eosinophils Percent Auto 0.9 % (2-4); Hematocrit 40.8 % (41-53); Hemoglobin 13.9 g/dL (13.5-17.5); Lymphocytes Absolute Auto 1400 /uL (1100-4500); Lymphocytes Percent Auto 23.7 % (25-40); Mean Corpuscular HGB Conc 34.2 % (30-36); Mean Corpuscular Hemoglobin 31.3 PG (26-34); Mean Corpuscular Volume 91.4 fL (80-100); Monocytes Absolute Auto 400 /uL (0-900); Monocytes Percent Auto 6.5 % (3-14); Neutrophils Absolute Auto 4100 /uL (1500-7000); Neutrophils Percent Auto 68.5 % (50-75); Platelet Count 256 X10^3/uL (150-400); Red Blood Cell Count 4.46 X10^6/uL (4.5-5.9); Red Cell Distribution Width 13.8 % (11.6-14.8)
[2024-09-07 13:30] LABS: Hemoglobin A1C% w Est Avg Glu 6.8 % (4.0-6.0)
[2024-09-07 13:35] LABS: Alanine Aminotransferase 27 IU/L (<50); Albumin 4.5 g/dL (3.5-5.0); Albumin Globulin Ratio 1.9 (1.0-2.8); Alkaline Phosphatase 70 U/L (38-126); Aspartate Aminotransferase 26 IU/L (17-59); BUN Creatinine Ratio 16.9 (6-22); Bilirubin Total 0.9 mg/dL (0.2-1.3); Blood Urea Nitrogen 13 mg/dL (9-20); Calcium 9.6 mg/dL (8.4-10.2); Carbon Dioxide 29 mmol/L (22-32); Chloride 100 mmol/L (98-107); Cholesterol 174 mg/dL (140-199); Estimated Glomerular Filt Rate > 60 mL/min (>60); Globulin 2.4 g/dL (1.7-4.1); Glucose 124 mg/dL (80-110); HDL Cholesterol 59 mg/dL (40-60); HEMOLYSIS < 15 (0-50); LDL Cholesterol Calculated 88 mg/dL (<100); Potassium 4.3 mmol/L (3.4-5.1); Sodium 136 mmol/L (137-145); Total Protein 6.9 g/dL (6.3-8.2); Triglycerides 133 mg/dL (35-150)
[2024-09-07 14:02] LABS: Prostate Specific Antigen Scrn 2.19 ng/mL (0.1-4.0)
[2024-09-07 14:17] LABS: Creatinine Urine Random 33.26 mg/dL; Protein (Total) Urine Random 10 mg/dL (0-12)
[2024-09-08 08:38] LABS: CRP, High Sensitivity 4.08 mg/L (0.00-3.00)
== END ==
PROVIDERS: Family Provider Family Medicine; PCP Family Medicine; Referring Provider Family Medicine; Visit Provider Family Medicine
DX: D64.9 Anemia, unspecified (principal); E11.69 Type 2 diabetes mellitus with other specified complication; E11.59 Type 2 diabetes mellitus with other circulatory complications; E78.00 Pure hypercholesterolemia, unspecified; I10 Essential (primary) hypertension; Z12.5 Encounter for screening for malignant neoplasm of prostate; I15.2 Hypertension secondary to endocrine disorders; E66.9 Obesity, unspecified
CPT/HCPCS: 36415; 80053; 80061; 82570; 83036; 84156; 85025; 86140; G0103

== ENCOUNTER → 2025-01-16 15:03 | Outpatient (CLI) | payer OTHER, SELFPAY ==
--- NOTE | 2025-01-16 15:05 | DI.RAD.S_ITS ---
PROCEDURE: XR HIP W PEL IF DONE LT 2V INDICATIONS: L HIP INSTABILITY/EVAL ARTHRITIS SEVERITY TECHNIQUE: AP pelvis with lateral view(s) of the left hip(s). COMPARISON: None. FINDINGS: Bones: No fractures or dislocations. 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 Pelvic ring appears intact. No suspicious bony lesions. Degenerative changes of the visualized lower lumbar spine and pubic symphysis. Soft tissues: The visualized bowel gas pattern is normal. No suspicious soft tissue calcifications. IMPRESSION: No acute osseous abnormalities. 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 Dictated by: David Rhodes M.D. on 01/17/2025 at 10:17 Approved by: David Rhodes M.D. on 01/17/2025 at 10:18
== END ==
PROVIDERS: PCP Family Medicine; Referring Provider Family Medicine; Visit Provider Family Medicine
DX: M16.0 Bilateral primary osteoarthritis of hip (principal); M25.352 Other instability, left hip
CPT/HCPCS: 73502

== ENCOUNTER 2025-03-20 15:15 | Outpatient (RCR) | payer OTHER, SELFPAY ==
--- NOTE | 2025-02-06 17:29 | PT.OIE ---
Current Diagnoses Other instability, left hip (02/06/25) Past Medical History (Last Updated 07/12/23 @ 09:05 by Daphnie Ewing DO) Arthritis COVID-19 Environmental and seasonal allergies GERD (gastroesophageal reflux disease) Hypercholesteremia Hypertension MICHELLE (obstructive sleep apnea) Pre-diabetes Visit Care Team Role Provider Type Daphnie Ewing DO Attending Provider Physician Family Provider Primary Care Provider Referring Provider Specialty: Medical Address: [address] [place] [address], [address], [place], [place], [facility] Email: [email or web address] Physical Therapy Initial Evaluation PT-OP-A Visit Information Start: 02/06/25 17:12 Freq: Status: Active Protocol: Document 02/06/25 17:13 KW (Rec: 02/06/25 17:29 KW Laptop) Out-Patient Physical Therapy Visit Information Visit Information Visit Type Initial Evaluation Visit Start Time 14:30 Visit Stop Time 15:15 Visit Number 1 Evaluation Information Evaluation Date 02/06/25 PT-OP-B Current Condition Start: 02/06/25 17:12 Freq: Status: Active Protocol: Document 02/06/25 17:13 KW (Rec: 02/06/25 17:29 KW Laptop) Current Condition History of Current Condition Onset Date chronic Current Complaints R > L hip pain 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 x-rays completed. he participates in water aerobics 5 x a week at local pool enjoys traveling. Prior Functional Status Baseline Function- Independent ADL's Baseline Function- Independent Mobility Personal Factors Other Personal DMII, HTN, back pain, neuropathy Factors That May Effect Therapy/ Recovery PT-OP-C Subjective Start: 02/06/25 17:12 Freq: Status: Active Protocol: Document 02/06/25 17:13 KW (Rec: 02/06/25 17:29 KW Laptop) Patient Questionnaires Lower Extremity Functional Scale LEFS Score 66 LEFS Impairment 1 to 19% Impaired (Score 63-79) OP-PT Pain Assessment Location hips Pain Location lateral hips Details Intensity 3 Description Aching,Burning,Cramping,Dull,Pinching,Pulling,Sharp, Spasm,Tender Frequency Frequent Pain Aggravating Position,Changing Position,ADL's,Activity,Exercise, Factors Standing,Sitting,Walking Pain Alleviating Cold,Heat,Medication Factors Other Pain pool aerobics Alleviating Factors PT-OP-D Balance Start: 02/06/25 17:12 Freq: Status: Active Protocol: Document 02/06/25 17:13 KW (Rec: 02/06/25 17:29 KW Laptop) OP-PT Balance Assessment Standing Balance Static Standing Normal Balance Ability Dynamic Standing Good Balance Ability Lopez Fall Scale Copyright Permission PT-OP-E Functional Tests Start: 02/06/25 17:12 Freq: Status: Active Protocol: Document 02/06/25 17:13 KW (Rec: 02/06/25 17:29 KW Laptop) Functional Tests Five Times Sit to Stand Test Score 15 Comments pain PT-OP-F Manual Assessment Start: 02/06/25 17:12 Freq: Status: Active Protocol: Document 02/06/25 17:13 KW (Rec: 02/06/25 17:29 KW Laptop) Manual Assessments Soft Tissue Assessment Soft Tissue Mobility tender over B greater trochanters Assessment Joint Mobility Assessment Joint Mobility stiffness B inferior/lateral hip Assessment PT-OP-G Mobility & Gait Start: 02/06/25 17:12 Freq: Status: Active Protocol: Document 02/06/25 17:13 KW (Rec: 02/06/25 17:29 KW Laptop) OP Mobility Evaluation Transfers Sit to Stand wide MIQUEL, standing with excessive lumbar extension, driving thru toes, breath holding OP Gait Assessment Comments Gait Comments wide MIQUEL, slight toe out gait. ill fitting shoes Stair Climbing Evaluation Evaluation Level of Assist On Independent Stairs Technique/Endurance Stair Climbing Ascend and Descend Direction Stair Climbing Step Over Step Technique Comments Stair Climbing cues for nose over toes, driving thru heels Comments coming down with better eccentric control thru hips PT-OP-J Posture/Palpation/Skin Start: 02/06/25 17:12 Freq: Status: Active Protocol: Document 02/06/25 17:13 KW (Rec: 02/06/25 17:29 KW Laptop) Posture Evaluation Position Standing Evaluation View Lateral Head/C-Spine Posture Forward Head T-Spine Posture Increased Kyphosis Thorax Posture Barrel Chested L-Spine Posture Flattened Shoulder Posture (L) Rounded,(R) Rounded Scapula Posture (L) Protracted,(R) Protracted Weight Distribution Weight Shifted Right Palpation Assessment Location hips Palpation Location lateral hips Palpation Findings Soft Tissue Tightness,Tenderness PT-OP-K Range of Motion Start: 02/06/25 17:12 Freq: Status: Active Protocol: Document 02/06/25 17:13 KW (Rec: 02/06/25 17:29 KW Laptop) Lumbar Spine Range of Motion Lumbar Spine Active Testing Position Standing Flexion 50 Extension 10 Rotation Left 15 Rotation Right 20 Lateral Flexion Left 14 Lateral Flexion 6 Right ROM Limitations Soft Tissue Tightness Hip Goniometric Range of Motion Hip right Hip ROM WFL No Testing Position Supine Flexion w/Knee 100 Flexed Straight Leg Raise 80 Internal Rotation 10 External Rotation 25 Comments pain at end-range IR/ER left Hip ROM WFL No Testing Position Supine Flexion w/Knee 100 Flexed Straight Leg Raise 80 Internal Rotation 8 External Rotation 35 Comments stiff, painful Hip ROM Limitations Hip ROM Limitations Soft Tissue Tightness,Bony Restriction,Pain PT-OP-L Special Tests Start: 02/06/25 17:12 Freq: Status: Active Protocol: Document 02/06/25 17:13 KW (Rec: 02/06/25 17:29 KW Laptop) Special Tests Hip Special Tests scour Test Results pos Comments bilateral JULIANE Test Results pos Comments bilateral PT-OP-M Strength Start: 02/06/25 17:12 Freq: Status: Active Protocol: Document 02/06/25 17:13 KW (Rec: 02/06/25 17:29 KW Laptop) Trunk Strength Trunk Manual Muscle Testing Flexion 3+ Fair+ Core Stabilization poor control of IO/TA, breath holding patterns Hip Strength Hip Manual Muscle Testing rigth Flexion (L2) 4- Good- Extension (S1) 4- Good- Abduction 4- Good- Left Flexion (L2) 4- Good- Extension (S1) 4- Good- Abduction 4- Good- PT-OP-Q Treatments Start: 02/06/25 17:12 Freq: Status: Active Protocol: Document 02/06/25 17:13 KW (Rec: 02/06/25 17:29 KW Laptop) Therapeutic Exercises Supine Exercises hip er stretch Side bilateral Reps/Minutes 3 x 30 sec Comments hand to push - handout issued bridge Supine Exercise Name pillow between knees Side bilateral Reps/Minutes 10 Comments cues to lift during exhale only - handout issued Self-Care/Home Management Treatment Education Patient Education Body Mechanics,Fall Risk,Home Exercise Program,Joint Protection,Pain Management,Posture Other Education sit-stand training stair training instructions written out on handout PT-OP-T Assessment and Plan Start: 02/06/25 17:12 Freq: Status: Active Protocol: Document 02/06/25 17:13 KW (Rec: 02/06/25 17:29 KW Laptop) Physical Therapy Assessment Rehab Potential Rehabilitation Good Potential Evaluation Complexity Number of Personal 1-2 Factors/ Comorbidities Number of Body 3 Systems Impaired Clinical Stable Presentation at Evaluation Impairments Impairments Activity Tolerance,Balance,Functional Activities, Functional Mobility,Gait,Pain,Posture,ROM,Soft Tissue Mobility,Strength Other Impairments blood sugar management, encouraged CGM Rx from MD Goals Three Impairment lack of strength Short Term Goal (STG patient presents with B hip abd strength 4+/5 ) STG Duration 6 weeks Two Impairment pain with sit to stand Short Term Goal (STG patient no longer has pain in hips, sit to stand ) One Impairment lack of HEP Short Term Goal (STG patient demonstrates independence and compliance with ) HEP Assessment Summary Assessment 64 yo male with B hip OA. He presents with decreased frontal plane strength, ROM deficits, pain, CORE weakness. Patient will benefit from skilled PT to address deficits in order to maximize function, gait, pain management. Physical Therapy Plan Frequency and Duration Frequency of 2x/Week Treatment Duration of 6 treatment (weeks) Plan of Care Start 02/06/25 Date Plan of Care End 05/09/25 Date Therapeutic Interventions Therapeutic Aquatic Therapy,Balance Training,Gait Training,Home Interventions Exercise Program,Joint Mobilizations,Manual Therapy, Neuromuscular Re-education,Patient/Caregiver Education, Self-Care/Home Management,Soft Tissue Mobilization, Taping,Therapeutic Activities,Therapeutic Exercises Modalities Cold Pack/Ice Massage,Electric Stimulation,Hot Packs, Ultrasound Next Visit Focus/Plan Next Note Type Treatment Note Next Visit Plan nu step shuttle HEP progression
--- NOTE | 2025-02-06 17:29 | PT.OPPOC ---
Physical, Occupational & Speech Therapy At [facility] Current Diagnoses Other instability, left hip (02/06/25) Visit Care Team Role Provider Type Daphnie Ewing DO Attending Provider Physician Family Provider Primary Care Provider Referring Provider Specialty: Medical Address: [address] [place] [address], [address], [place], [address] Email: [email or web address] Plan Of Care PT-OP-B Current Condition Start: 02/06/25 17:12 Freq: Status: Active Protocol: Document 02/06/25 17:13 KW (Rec: 02/06/25 17:29 KW Laptop) Current Condition History of Current Condition Onset Date chronic Current Complaints R > L hip pain 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 x-rays completed. he participates in water aerobics 5 x a week at [employer] pool enjoys traveling. Prior Functional Status Baseline Function- Independent ADL's Baseline Function- Independent Mobility Personal Factors Other Personal DMII, HTN, back pain, neuropathy Factors That May Effect Therapy/ Recovery PT-OP-T Assessment and Plan Start: 02/06/25 17:12 Freq: Status: Active Protocol: Document 02/06/25 17:13 KW (Rec: 02/06/25 17:29 KW Laptop) Physical Therapy Assessment Rehab Potential Rehabilitation Good Potential Evaluation Complexity Number of Personal 1-2 Factors/ Comorbidities Number of Body 3 Systems Impaired Clinical Stable Presentation at Evaluation Impairments Impairments Activity Tolerance,Balance,Functional Activities, Functional Mobility,Gait,Pain,Posture,ROM,Soft Tissue Mobility,Strength Other Impairments blood sugar management, encouraged CGM Rx from MD Goals Three Impairment lack of strength Short Term Goal (STG patient presents with B hip abd strength 4+/5 ) STG Duration 6 weeks Two Impairment pain with sit to stand Short Term Goal (STG patient no longer has pain in hips, sit to stand ) One Impairment lack of HEP Short Term Goal (STG patient demonstrates independence and compliance with ) HEP Assessment Summary Assessment 64 yo male with B hip OA. He presents with decreased frontal plane strength, ROM deficits, pain, CORE weakness. Patient will benefit from skilled PT to address deficits in order to maximize function, gait, pain management. Physical Therapy Plan Frequency and Duration Frequency of 2x/Week Treatment Duration of 6 treatment (weeks) Plan of Care Start 02/06/25 Date Plan of Care End 05/09/25 Date Therapeutic Interventions Therapeutic Aquatic Therapy,Balance Training,Gait Training,Home Interventions Exercise Program,Joint Mobilizations,Manual Therapy, Neuromuscular Re-education,Patient/Caregiver Education, Self-Care/Home Management,Soft Tissue Mobilization, Taping,Therapeutic Activities,Therapeutic Exercises Modalities Cold Pack/Ice Massage,Electric Stimulation,Hot Packs, Ultrasound Next Visit Focus/Plan Next Note Type Treatment Note Next Visit Plan nu step shuttle HEP progression Plan of Care Dates Plan of Care Start Date 02/06/25 Plan of Care End Date 05/09/25 Electronically Signed by: Rosalind Pablo, PT 02/06/25 [id number] If you are in agreement with this Plan of Care, please return a signed and dated copy. I have reviewed this Plan of Care and certify that the skilled therapy services above are required to meet the patient?s needs. Physician Signature Date Printed Name and Credentials Clinical Instructor Signature Printed Name and Credentials
--- NOTE | 2025-02-12 12:48 | PT.OTN ---
Current Diagnoses Other instability, left hip (02/12/25) Physical Therapy Treatment Note PT-OP-A Visit Information Start: 02/06/25 17:12 Freq: Status: Active Protocol: Document 02/12/25 11:37 KW (Rec: 02/12/25 12:48 KW Laptop) Out-Patient Physical Therapy Visit Information Visit Information Visit Type Treatment Note Visit Start Time 14:30 Visit Stop Time 15:15 Visit Number 2 Evaluation Information Evaluation Date 02/06/25 PT-OP-B Current Condition Start: 02/06/25 17:12 Freq: Status: Active Protocol: Document 02/12/25 11:37 KW (Rec: 02/12/25 12:48 KW Laptop) Current Condition History of Current Condition Onset Date chronic Current Complaints R > L hip pain 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 x-rays completed. Severe OA L, Moderate on R. he participates in water aerobics 5 x a week at local pool enjoys traveling. Prior Functional Status Baseline Function- Independent ADL's Baseline Function- Independent Mobility Personal Factors Other Personal DMII, HTN, back pain, neuropathy Factors That May Effect Therapy/ Recovery PT-OP-C Subjective Start: 02/06/25 17:12 Freq: Status: Active Protocol: Document 02/12/25 11:37 KW (Rec: 02/12/25 12:48 KW Laptop) OP-PT Subjective Patient Comments Patient Comments walked in the parade over the weekend. Had his L hip lock up and couldn't bear weight at all. Neighbor, ( retired PT) did some traction which relieved his pain. OP-PT Pain Assessment Location hips Pain Location lateral hips Details Intensity 3 Description Aching,Burning,Cramping,Dull,Pinching,Pulling,Sharp, Spasm,Tender Frequency Frequent Pain Aggravating Position,Changing Position,ADL's,Activity,Exercise, Factors Standing,Sitting,Walking Pain Alleviating Cold,Heat,Medication Factors Other Pain pool aerobics Alleviating Factors PT-OP-D Balance Start: 02/06/25 17:12 Freq: Status: Active Protocol: Document 02/06/25 17:13 KW (Rec: 02/06/25 17:29 KW Laptop) OP-PT Balance Assessment Standing Balance Static Standing Normal Balance Ability Dynamic Standing Good Balance Ability Lopez Fall Scale Copyright Permission PT-OP-E Functional Tests Start: 02/06/25 17:12 Freq: Status: Active Protocol: Document 02/06/25 17:13 KW (Rec: 02/06/25 17:29 KW Laptop) Functional Tests Five Times Sit to Stand Test Score 15 Comments pain PT-OP-F Manual Assessment Start: 02/06/25 17:12 Freq: Status: Active Protocol: Document 02/06/25 17:13 KW (Rec: 02/06/25 17:29 KW Laptop) Manual Assessments Soft Tissue Assessment Soft Tissue Mobility tender over B greater trochanters Assessment Joint Mobility Assessment Joint Mobility stiffness B inferior/lateral hip Assessment PT-OP-G Mobility & Gait Start: 02/06/25 17:12 Freq: Status: Active Protocol: Document 02/06/25 17:13 KW (Rec: 02/06/25 17:29 KW Laptop) OP Mobility Evaluation Transfers Sit to Stand wide MIQUEL, standing with excessive lumbar extension, driving thru toes, breath holding OP Gait Assessment Comments Gait Comments wide MIQUEL, slight toe out gait. ill fitting shoes Stair Climbing Evaluation Evaluation Level of Assist On Independent Stairs Technique/Endurance Stair Climbing Ascend and Descend Direction Stair Climbing Step Over Step Technique Comments Stair Climbing cues for nose over toes, driving thru heels Comments coming down with better eccentric control thru hips PT-OP-J Posture/Palpation/Skin Start: 02/06/25 17:12 Freq: Status: Active Protocol: Document 02/06/25 17:13 KW (Rec: 02/06/25 17:29 KW Laptop) Posture Evaluation Position Standing Evaluation View Lateral Head/C-Spine Posture Forward Head T-Spine Posture Increased Kyphosis Thorax Posture Barrel Chested L-Spine Posture Flattened Shoulder Posture (L) Rounded,(R) Rounded Scapula Posture (L) Protracted,(R) Protracted Weight Distribution Weight Shifted Right Palpation Assessment Location hips Palpation Location lateral hips Palpation Findings Soft Tissue Tightness,Tenderness PT-OP-K Range of Motion Start: 02/06/25 17:12 Freq: Status: Active Protocol: Document 02/06/25 17:13 KW (Rec: 02/06/25 17:29 KW Laptop) Lumbar Spine Range of Motion Lumbar Spine Active Testing Position Standing Flexion 50 Extension 10 Rotation Left 15 Rotation Right 20 Lateral Flexion Left 14 Lateral Flexion 6 Right ROM Limitations Soft Tissue Tightness Hip Goniometric Range of Motion Hip right Hip ROM WFL No Testing Position Supine Flexion w/Knee 100 Flexed Straight Leg Raise 80 Internal Rotation 10 External Rotation 25 Comments pain at end-range IR/ER left Hip ROM WFL No Testing Position Supine Flexion w/Knee 100 Flexed Straight Leg Raise 80 Internal Rotation 8 External Rotation 35 Comments stiff, painful Hip ROM Limitations Hip ROM Limitations Soft Tissue Tightness,Bony Restriction,Pain PT-OP-L Special Tests Start: 02/06/25 17:12 Freq: Status: Active Protocol: Document 02/06/25 17:13 KW (Rec: 02/06/25 17:29 KW Laptop) Special Tests Hip Special Tests scour Test Results pos Comments bilateral JULIANE Test Results pos Comments bilateral PT-OP-M Strength Start: 02/06/25 17:12 Freq: Status: Active Protocol: Document 02/06/25 17:13 KW (Rec: 02/06/25 17:29 KW Laptop) Trunk Strength Trunk Manual Muscle Testing Flexion 3+ Fair+ Core Stabilization poor control of IO/TA, breath holding patterns Hip Strength Hip Manual Muscle Testing rigth Flexion (L2) 4- Good- Extension (S1) 4- Good- Abduction 4- Good- Left Flexion (L2) 4- Good- Extension (S1) 4- Good- Abduction 4- Good- PT-OP-Q Treatments Start: 02/06/25 17:12 Freq: Status: Active Protocol: Document 02/12/25 11:37 KW (Rec: 02/12/25 12:48 KW Laptop) Cardio Equipment Recumbent Stepper (Sci-Fit) Duration (Minutes) 10 Resistance 2 Gym Equipment Therapeutic Ball supine ball Exercise Details supine hamstring curls, LTR, bridging Body Position Supine Reps/Duration 1 min each Therapeutic Exercises Supine Exercises hip er stretch Side bilateral Reps/Minutes 3 x 30 sec Comments hand to push - handout issued bridge Supine Exercise Name pillow between knees Side bilateral Reps/Minutes 10 Comments cues to lift during exhale only - handout issued Manual Therapy Treatment Consent Patient gave verbal Yes consent for manual treatment Joint Mobilizations hips Comments long leg traction 20 degrees, towel around ankle video taken for partner to help at home Self-Care/Home Management Treatment Education Patient Education Body Mechanics,Fall Risk,Home Exercise Program,Joint Protection,Pain Management,Posture Other Education sit-stand training stair training instructions written out on handout PT-OP-T Assessment and Plan Start: 02/06/25 17:12 Freq: Status: Active Protocol: Document 02/12/25 11:37 KW (Rec: 02/12/25 12:48 KW Laptop) Physical Therapy Assessment Rehab Potential Rehabilitation Good Potential Evaluation Complexity Number of Personal 1-2 Factors/ Comorbidities Number of Body 3 Systems Impaired Clinical Stable Presentation at Evaluation Impairments Impairments Activity Tolerance,Balance,Functional Activities, Functional Mobility,Gait,Pain,Posture,ROM,Soft Tissue Mobility,Strength Other Impairments blood sugar management, encouraged CGM Rx from MD Goals Three Impairment lack of strength Short Term Goal (STG patient presents with B hip abd strength 4+/5 ) STG Duration 6 weeks Two Impairment pain with sit to stand Short Term Goal (STG patient no longer has pain in hips, sit to stand ) One Impairment lack of HEP Short Term Goal (STG patient demonstrates independence and compliance with ) HEP Assessment Summary Assessment tolerated Traction well. Hard working during PT. 64 yo male with B hip OA. He presents with decreased frontal plane strength, ROM deficits, pain, CORE weakness. Patient will benefit from skilled PT to address deficits in order to maximize function, gait, pain management. Physical Therapy Plan Frequency and Duration Frequency of 2x/Week Treatment Duration of 6 treatment (weeks) Plan of Care Start 02/06/25 Date Plan of Care End 05/09/25 Date Therapeutic Interventions Therapeutic Aquatic Therapy,Balance Training,Gait Training,Home Interventions Exercise Program,Joint Mobilizations,Manual Therapy, Neuromuscular Re-education,Patient/Caregiver Education, Self-Care/Home Management,Soft Tissue Mobilization, Taping,Therapeutic Activities,Therapeutic Exercises Modalities Cold Pack/Ice Massage,Electric Stimulation,Hot Packs, Ultrasound Next Visit Focus/Plan Next Note Type Treatment Note Next Visit Plan nu step shuttle HEP progression - needs ania, handout. Has a band at home.
--- NOTE | 2025-02-14 12:13 | PT.OTN ---
Current Diagnoses Other instability, left hip (02/14/25) Physical Therapy Treatment Note PT-OP-A Visit Information Start: 02/06/25 17:12 Freq: Status: Active Protocol: Document 02/14/25 11:37 KW (Rec: 02/14/25 12:13 KW Laptop) Out-Patient Physical Therapy Visit Information Visit Information Visit Type Treatment Note Visit Start Time 11:35 Visit Stop Time 12:15 Visit Number 3 Evaluation Information Evaluation Date 02/06/25 PT-OP-B Current Condition Start: 02/06/25 17:12 Freq: Status: Active Protocol: Document 02/12/25 11:37 KW (Rec: 02/12/25 12:48 KW Laptop) Current Condition History of Current Condition Onset Date chronic Current Complaints R > L hip pain History of Current 64 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 x-rays completed. Severe OA L, Moderate on R. he participates in water aerobics 5 x a week at local pool enjoys traveling. Prior Functional Status Baseline Function- Independent ADL's Baseline Function- Independent Mobility Personal Factors Other Personal DMII, HTN, back pain, neuropathy Factors That May Effect Therapy/ Recovery PT-OP-C Subjective Start: 02/06/25 17:12 Freq: Status: Active Protocol: Document 02/14/25 11:37 KW (Rec: 02/14/25 12:13 KW Laptop) OP-PT Subjective Patient Comments Patient Comments hips are achy from water aerobics OP-PT Pain Assessment Location hips Pain Location lateral hips Details Intensity 3 Description Aching,Burning,Cramping,Dull,Pinching,Pulling,Sharp, Spasm,Tender Frequency Frequent Pain Aggravating Position,Changing Position,ADL's,Activity,Exercise, Factors Standing,Sitting,Walking Pain Alleviating Cold,Heat,Medication Factors Other Pain pool aerobics Alleviating Factors PT-OP-D Balance Start: 02/06/25 17:12 Freq: Status: Active Protocol: Document 02/06/25 17:13 KW (Rec: 02/06/25 17:29 KW Laptop) OP-PT Balance Assessment Standing Balance Static Standing Normal Balance Ability Dynamic Standing Good Balance Ability Lopez Fall Scale Copyright Permission PT-OP-E Functional Tests Start: 02/06/25 17:12 Freq: Status: Active Protocol: Document 02/06/25 17:13 KW (Rec: 02/06/25 17:29 KW Laptop) Functional Tests Five Times Sit to Stand Test Score 15 Comments pain PT-OP-F Manual Assessment Start: 02/06/25 17:12 Freq: Status: Active Protocol: Document 02/06/25 17:13 KW (Rec: 02/06/25 17:29 KW Laptop) Manual Assessments Soft Tissue Assessment Soft Tissue Mobility tender over B greater trochanters Assessment Joint Mobility Assessment Joint Mobility stiffness B inferior/lateral hip Assessment PT-OP-G Mobility & Gait Start: 02/06/25 17:12 Freq: Status: Active Protocol: Document 02/06/25 17:13 KW (Rec: 02/06/25 17:29 KW Laptop) OP Mobility Evaluation Transfers Sit to Stand wide MIQUEL, standing with excessive lumbar extension, driving thru toes, breath holding OP Gait Assessment Comments Gait Comments wide MIQUEL, slight toe out gait. ill fitting shoes Stair Climbing Evaluation Evaluation Level of Assist On Independent Stairs Technique/Endurance Stair Climbing Ascend and Descend Direction Stair Climbing Step Over Step Technique Comments Stair Climbing cues for nose over toes, driving thru heels Comments coming down with better eccentric control thru hips PT-OP-J Posture/Palpation/Skin Start: 02/06/25 17:12 Freq: Status: Active Protocol: Document 02/06/25 17:13 KW (Rec: 02/06/25 17:29 KW Laptop) Posture Evaluation Position Standing Evaluation View Lateral Head/C-Spine Posture Forward Head T-Spine Posture Increased Kyphosis Thorax Posture Barrel Chested L-Spine Posture Flattened Shoulder Posture (L) Rounded,(R) Rounded Scapula Posture (L) Protracted,(R) Protracted Weight Distribution Weight Shifted Right Palpation Assessment Location hips Palpation Location lateral hips Palpation Findings Soft Tissue Tightness,Tenderness PT-OP-K Range of Motion Start: 02/06/25 17:12 Freq: Status: Active Protocol: Document 02/06/25 17:13 KW (Rec: 02/06/25 17:29 KW Laptop) Lumbar Spine Range of Motion Lumbar Spine Active Testing Position Standing Flexion 50 Extension 10 Rotation Left 15 Rotation Right 20 Lateral Flexion Left 14 Lateral Flexion 6 Right ROM Limitations Soft Tissue Tightness Hip Goniometric Range of Motion Hip right Hip ROM WFL No Testing Position Supine Flexion w/Knee 100 Flexed Straight Leg Raise 80 Internal Rotation 10 External Rotation 25 Comments pain at end-range IR/ER left Hip ROM WFL No Testing Position Supine Flexion w/Knee 100 Flexed Straight Leg Raise 80 Internal Rotation 8 External Rotation 35 Comments stiff, painful Hip ROM Limitations Hip ROM Limitations Soft Tissue Tightness,Bony Restriction,Pain PT-OP-L Special Tests Start: 02/06/25 17:12 Freq: Status: Active Protocol: Document 02/06/25 17:13 KW (Rec: 02/06/25 17:29 KW Laptop) Special Tests Hip Special Tests scour Test Results pos Comments bilateral JULIANE Test Results pos Comments bilateral PT-OP-M Strength Start: 02/06/25 17:12 Freq: Status: Active Protocol: Document 02/06/25 17:13 KW (Rec: 02/06/25 17:29 KW Laptop) Trunk Strength Trunk Manual Muscle Testing Flexion 3+ Fair+ Core Stabilization poor control of IO/TA, breath holding patterns Hip Strength Hip Manual Muscle Testing rigth Flexion (L2) 4- Good- Extension (S1) 4- Good- Abduction 4- Good- Left Flexion (L2) 4- Good- Extension (S1) 4- Good- Abduction 4- Good- PT-OP-Q Treatments Start: 02/06/25 17:12 Freq: Status: Active Protocol: Document 02/14/25 11:37 KW (Rec: 02/14/25 12:13 KW Laptop) Cardio Equipment Recumbent Stepper (Sci-Fit) Duration (Minutes) 5 Resistance 2 Gym Equipment Shuttle Recovery squats, heel raises Details 67# B squats, B heel raises Therapeutic Ball supine ball Exercise Details supine hamstring curls, LTR, bridging Body Position Supine Reps/Duration 1 min each Therapeutic Exercises Supine Exercises hip er stretch Side bilateral Reps/Minutes 3 x 30 sec Comments hand to push - handout issued bridge Supine Exercise Name pillow between knees Side bilateral Reps/Minutes 10 Comments cues to lift during exhale only - handout issued Sitting Exercises hip abd band Sitting Exercise hip abd with band Name Resistance level 4 Reps/Minutes 60 sec Standing Exercises hip abd Standing Exercise hip abd with band at ankles Name Resistance level 4 Reps/Minutes 2 x 10 Manual Therapy Treatment Consent Patient gave verbal Yes consent for manual treatment Joint Mobilizations hips Comments long leg traction 20 degrees, towel around ankle video taken for partner to help at home Self-Care/Home Management Treatment Education Patient Education Body Mechanics,Fall Risk,Home Exercise Program,Joint Protection,Pain Management,Posture Other Education sit-stand training stair training instructions written out on handout PT-OP-T Assessment and Plan Start: 02/06/25 17:12 Freq: Status: Active Protocol: Document 02/14/25 11:37 KW (Rec: 02/14/25 12:13 KW Laptop) Physical Therapy Assessment Rehab Potential Rehabilitation Good Potential Evaluation Complexity Number of Personal 1-2 Factors/ Comorbidities Number of Body 3 Systems Impaired Clinical Stable Presentation at Evaluation Impairments Impairments Activity Tolerance,Balance,Functional Activities, Functional Mobility,Gait,Pain,Posture,ROM,Soft Tissue Mobility,Strength Other Impairments blood sugar management, encouraged CGM Rx from MD Goals Three Impairment lack of strength Short Term Goal (STG patient presents with B hip abd strength 4+/5 ) STG Duration 6 weeks Two Impairment pain with sit to stand Short Term Goal (STG patient no longer has pain in hips, sit to stand ) One Impairment lack of HEP Short Term Goal (STG patient demonstrates independence and compliance with ) HEP Assessment Summary Assessment f/u with PCP next week to review MRIs of hips. recommend referral to ortho MD. May benefit from injection/prp so he can enjoy travel this fall. felt pain relief with hip abd with band - issued for HEP Physical Therapy Plan Frequency and Duration Frequency of 2x/Week Treatment Duration of 6 treatment (weeks) Plan of Care Start 02/06/25 Date Plan of Care End 05/09/25 Date Therapeutic Interventions Therapeutic Aquatic Therapy,Balance Training,Gait Training,Home Interventions Exercise Program,Joint Mobilizations,Manual Therapy, Neuromuscular Re-education,Patient/Caregiver Education, Self-Care/Home Management,Soft Tissue Mobilization, Taping,Therapeutic Activities,Therapeutic Exercises Modalities Cold Pack/Ice Massage,Electric Stimulation,Hot Packs, Ultrasound Next Visit Focus/Plan Next Note Type Treatment Note Next Visit Plan nu step shuttle HEP progression - needs ania, handout. Has a band at home.
--- NOTE | 2025-02-19 12:37 | PT.OTN ---
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 x-rays completed. Severe OA L, Moderate on R. he participates in water aerobics 5 x a week at [employer] pool enjoys traveling. Prior Functional Status Baseline Function- Independent ADL's Baseline Function- Independent Mobility Personal Factors Other Personal DMII, HTN, back pain, neuropathy Factors That May Effect Therapy/ Recovery PT-OP-C Subjective Start: 02/06/25 17:12 Freq: Status: Active Protocol: Document 02/19/25 11:33 AB (Rec: 02/19/25 12:36 AB [id number]) OP-PT Subjective Patient Comments Patient Comments Patient reports he is about the same. Patient reports he will see MD tomorrow. Patient rates pain 2/10 L hip ambulating into session without device. PT-OP-D Balance Start: 02/06/25 17:12 Freq: Status: Active Protocol: Document 02/06/25 17:13 KW (Rec: 02/06/25 17:29 KW Laptop) OP-PT Balance Assessment Standing Balance Static Standing Normal Balance Ability Dynamic Standing Good Balance Ability Lopez Fall Scale Copyright Permission PT-OP-E Functional Tests Start: 02/06/25 17:12 Freq: Status: Active Protocol: Document 02/06/25 17:13 KW (Rec: 02/06/25 17:29 KW Laptop) Functional Tests Five Times Sit to Stand Test Score 15 Comments pain PT-OP-F Manual Assessment Start: 02/06/25 17:12 Freq: Status: Active Protocol: Document 02/06/25 17:13 KW (Rec: 02/06/25 17:29 KW Laptop) Manual Assessments Soft Tissue Assessment Soft Tissue Mobility tender over B greater trochanters Assessment Joint Mobility Assessment Joint Mobility stiffness B inferior/lateral hip Assessment PT-OP-G Mobility & Gait Start: 02/06/25 17:12 Freq: Status: Active Protocol: Document 02/06/25 17:13 KW (Rec: 02/06/25 17:29 KW Laptop) OP Mobility Evaluation Transfers Sit to Stand wide MIQUEL, standing with excessive lumbar extension, driving thru toes, breath holding OP Gait Assessment Comments Gait Comments wide MIQUEL, slight toe out gait. ill fitting shoes Stair Climbing Evaluation Evaluation Level of Assist On Independent Stairs Technique/Endurance Stair Climbing Ascend and Descend Direction Stair Climbing Step Over Step Technique Comments Stair Climbing cues for nose over toes, driving thru heels Comments coming down with better eccentric control thru hips PT-OP-J Posture/Palpation/Skin Start: 02/06/25 17:12 Freq: Status: Active Protocol: Document 02/06/25 17:13 KW (Rec: 02/06/25 17:29 KW Laptop) Posture Evaluation Position Standing Evaluation View Lateral Head/C-Spine Posture Forward Head T-Spine Posture Increased Kyphosis Thorax Posture Barrel Chested L-Spine Posture Flattened Shoulder Posture (L) Rounded,(R) Rounded Scapula Posture (L) Protracted,(R) Protracted Weight Distribution Weight Shifted Right Palpation Assessment Location hips Palpation Location lateral hips Palpation Findings Soft Tissue Tightness,Tenderness PT-OP-K Range of Motion Start: 02/06/25 17:12 Freq: Status: Active Protocol: Document 02/06/25 17:13 KW (Rec: 02/06/25 17:29 KW Laptop) Lumbar Spine Range of Motion Lumbar Spine Active Testing Position Standing Flexion 50 Extension 10 Rotation Left 15 Rotation Right 20 Lateral Flexion Left 14 Lateral Flexion 6 Right ROM Limitations Soft Tissue Tightness Hip Goniometric Range of Motion Hip right Hip ROM WFL No Testing Position Supine Flexion w/Knee 100 Flexed Straight Leg Raise 80 Internal Rotation 10 External Rotation 25 Comments pain at end-range IR/ER left Hip ROM WFL No Testing Position Supine Flexion w/Knee 100 Flexed Straight Leg Raise 80 Internal Rotation 8 External Rotation 35 Comments stiff, painful Hip ROM Limitations Hip ROM Limitations Soft Tissue Tightness,Bony Restriction,Pain PT-OP-L Special Tests Start: 02/06/25 17:12 Freq: Status: Active Protocol: Document 02/06/25 17:13 KW (Rec: 02/06/25 17:29 KW Laptop) Special Tests Hip Special Tests scour Test Results pos Comments bilateral JULIANE Test Results pos Comments bilateral PT-OP-M Strength Start: 02/06/25 17:12 Freq: Status: Active Protocol: Document 02/06/25 17:13 KW (Rec: 02/06/25 17:29 KW Laptop) Trunk Strength Trunk Manual Muscle Testing Flexion 3+ Fair+ Core Stabilization poor control of IO/TA, breath holding patterns Hip Strength Hip Manual Muscle Testing rigth Flexion (L2) 4- Good- Extension (S1) 4- Good- Abduction 4- Good- Left Flexion (L2) 4- Good- Extension (S1) 4- Good- Abduction 4- Good- PT-OP-Q Treatments Start: 02/06/25 17:12 Freq: Status: Active Protocol: Document 02/19/25 11:33 AB (Rec: 02/19/25 12:36 AB [id number]) Cardio Equipment Recumbent Stepper (Sci-Fit) Duration (Minutes) 6 Resistance 2 Seat Position 13 Gym Equipment Shuttle Recovery squats, heel raises Details 67# B squats, Reps/Time 2X15 Therapeutic Exercises Supine Exercises Mod julio cesar stretch Supine Exercise Name HEP Side bilateral Reps/Minutes 60 sec X 1 each Comments with AROM knee flexion Sidelying Exercises clamshell Sidelying Exercise back to wall HEP Name Equipment Used R X 15 with band L X 15 with and w/o band Comments verbal and visual cues sidelying hip abduction Sidelying Exercise back to wall HEP Name Reps/Minutes R X 15 with band L X 15 with and w/o band Comments verbal and visual cues Sitting Exercises Piriformis stretch Side bilateral Reps/Minutes 60 sec each LE X 2 Comments verbal cues hip abd band Sitting Exercise hip abd with band Name Resistance level 4 Reps/Minutes 60 sec Standing Exercises Hip ext Standing Exercise leaning on raised mat Name Reps/Minutes X 12 Comments verbal and visual cues PT-OP-T Assessment and Plan Start: 02/06/25 17:12 Freq: Status: Active Protocol: Document 02/19/25 11:33 AB (Rec: 02/19/25 12:36 AB [id number]) Physical Therapy Assessment Goals Three Impairment lack of strength Short Term Goal (STG patient presents with B hip abd strength 4+/5 ) STG Duration 6 weeks Two Impairment pain with sit to stand Short Term Goal (STG patient no longer has pain in hips, sit to stand ) One Impairment lack of HEP Short Term Goal (STG patient demonstrates independence and compliance with ) HEP Assessment Summary Assessment Darron reports having no pain ambulating out of session without device, ( compared to 2/10 L hip ambulating into session ) Physical Therapy Plan Frequency and Duration Frequency of 2x/Week Treatment Duration of 6 treatment (weeks) Plan of Care Start 02/06/25 Date Plan of Care End 05/09/25 Date Next Visit Focus/Plan Next Note Type Treatment Note Next Visit Plan nu step shuttle HEP progression - review HEP, progress to level 2 band with sidelying hip strengthening
--- NOTE | 2025-02-21 12:22 | PT.OTN ---
Current Diagnoses Other instability, left hip (02/21/25) Physical Therapy Treatment Note PT-OP-A Visit Information Start: 02/06/25 17:12 Freq: Status: Active Protocol: Document 02/21/25 11:35 KW (Rec: 02/21/25 12:16 KW Laptop) Out-Patient Physical Therapy Visit Information Visit Information Visit Type Treatment Note Visit Note Visit [email or web address] Access Code: [email or web address] Visit Start Time 11:35 Visit Stop Time 12:12 Visit Number 5 Number of [employer] PET Visits 1 PT-OP-B Current Condition Start: 02/06/25 17:12 Freq: Status: Active Protocol: Document 02/12/25 11:37 KW (Rec: 02/12/25 12:48 KW Laptop) Current Condition History of Current Condition Onset Date chronic Current Complaints R > L hip pain 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 x-rays completed. Severe OA L, Moderate on R. he participates in water aerobics 5 x a week at local pool enjoys traveling. Prior Functional Status Baseline Function- Independent ADL's Baseline Function- Independent Mobility Personal Factors Other Personal DMII, HTN, back pain, neuropathy Factors That May Effect Therapy/ Recovery PT-OP-C Subjective Start: 02/06/25 17:12 Freq: Status: Active Protocol: Document 02/21/25 11:35 KW (Rec: 02/21/25 12:16 KW Laptop) OP-PT Subjective Patient Comments Patient Comments got a cortizone shot from Dr. Ewing. slept thru the night last night without pain hip was sore after water aerobics Patient Questionnaires Lower Extremity Functional Scale LEFS Score 66 LEFS Impairment 1 to 19% Impaired (Score 63-79) OP-PT Pain Assessment Location hips Pain Location lateral hips Details Intensity 1 Description Aching,Burning,Cramping,Dull,Pinching,Pulling,Sharp, Spasm,Tender Frequency Frequent Pain Aggravating Position,Changing Position,ADL's,Activity,Exercise, Factors Standing,Sitting,Walking Pain Alleviating Cold,Heat,Medication Factors Other Pain pool aerobics Alleviating Factors PT-OP-D Balance Start: 02/06/25 17:12 Freq: Status: Active Protocol: Document 02/06/25 17:13 KW (Rec: 02/06/25 17:29 KW Laptop) OP-PT Balance Assessment Standing Balance Static Standing Normal Balance Ability Dynamic Standing Good Balance Ability Lopez Fall Scale Copyright Permission PT-OP-E Functional Tests Start: 02/06/25 17:12 Freq: Status: Active Protocol: Document 02/06/25 17:13 KW (Rec: 02/06/25 17:29 KW Laptop) Functional Tests Five Times Sit to Stand Test Score 15 Comments pain PT-OP-F Manual Assessment Start: 02/06/25 17:12 Freq: Status: Active Protocol: Document 02/06/25 17:13 KW (Rec: 02/06/25 17:29 KW Laptop) Manual Assessments Soft Tissue Assessment Soft Tissue Mobility tender over B greater trochanters Assessment Joint Mobility Assessment Joint Mobility stiffness B inferior/lateral hip Assessment PT-OP-G Mobility & Gait Start: 02/06/25 17:12 Freq: Status: Active Protocol: Document 02/06/25 17:13 KW (Rec: 02/06/25 17:29 KW Laptop) OP Mobility Evaluation Transfers Sit to Stand wide MIQUEL, standing with excessive lumbar extension, driving thru toes, breath holding OP Gait Assessment Comments Gait Comments wide MIQUEL, slight toe out gait. ill fitting shoes Stair Climbing Evaluation Evaluation Level of Assist On Independent Stairs Technique/Endurance Stair Climbing Ascend and Descend Direction Stair Climbing Step Over Step Technique Comments Stair Climbing cues for nose over toes, driving thru heels Comments coming down with better eccentric control thru hips PT-OP-J Posture/Palpation/Skin Start: 02/06/25 17:12 Freq: Status: Active Protocol: Document 02/06/25 17:13 KW (Rec: 02/06/25 17:29 KW Laptop) Posture Evaluation Position Standing Evaluation View Lateral Head/C-Spine Posture Forward Head T-Spine Posture Increased Kyphosis Thorax Posture Barrel Chested L-Spine Posture Flattened Shoulder Posture (L) Rounded,(R) Rounded Scapula Posture (L) Protracted,(R) Protracted Weight Distribution Weight Shifted Right Palpation Assessment Location hips Palpation Location lateral hips Palpation Findings Soft Tissue Tightness,Tenderness PT-OP-K Range of Motion Start: 02/06/25 17:12 Freq: Status: Active Protocol: Document 02/06/25 17:13 KW (Rec: 02/06/25 17:29 KW Laptop) Lumbar Spine Range of Motion Lumbar Spine Active Testing Position Standing Flexion 50 Extension 10 Rotation Left 15 Rotation Right 20 Lateral Flexion Left 14 Lateral Flexion 6 Right ROM Limitations Soft Tissue Tightness Hip Goniometric Range of Motion Hip right Hip ROM WFL No Testing Position Supine Flexion w/Knee 100 Flexed Straight Leg Raise 80 Internal Rotation 10 External Rotation 25 Comments pain at end-range IR/ER left Hip ROM WFL No Testing Position Supine Flexion w/Knee 100 Flexed Straight Leg Raise 80 Internal Rotation 8 External Rotation 35 Comments stiff, painful Hip ROM Limitations Hip ROM Limitations Soft Tissue Tightness,Bony Restriction,Pain PT-OP-L Special Tests Start: 02/06/25 17:12 Freq: Status: Active Protocol: Document 02/06/25 17:13 KW (Rec: 02/06/25 17:29 KW Laptop) Special Tests Hip Special Tests scour Test Results pos Comments bilateral JULIANE Test Results pos Comments bilateral PT-OP-M Strength Start: 02/06/25 17:12 Freq: Status: Active Protocol: Document 02/06/25 17:13 KW (Rec: 02/06/25 17:29 KW Laptop) Trunk Strength Trunk Manual Muscle Testing Flexion 3+ Fair+ Core Stabilization poor control of IO/TA, breath holding patterns Hip Strength Hip Manual Muscle Testing rigth Flexion (L2) 4- Good- Extension (S1) 4- Good- Abduction 4- Good- Left Flexion (L2) 4- Good- Extension (S1) 4- Good- Abduction 4- Good- PT-OP-Q Treatments Start: 02/06/25 17:12 Freq: Status: Active Protocol: Document 02/21/25 11:35 KW (Rec: 02/21/25 12:16 KW Laptop) Cardio Equipment Recumbent Stepper (Sci-Fit) Duration (Minutes) 6 Resistance 2 Seat Position 13 Gym Equipment Shuttle Recovery squats, heel raises Details 67# B squats, Reps/Time 2X15 Therapeutic Ball supine ball Exercise Details supine hamstring curls, LTR, bridging Body Position Supine Reps/Duration 1 min each Therapeutic Exercises Supine Exercises Mod julio cesar stretch Supine Exercise Name HEP Side bilateral Reps/Minutes 60 sec X 1 each Comments with AROM knee flexion hip er stretch Side bilateral Reps/Minutes 3 x 30 sec Comments hand to push - handout issued bridge Supine Exercise Name pillow between knees Side bilateral Reps/Minutes 10 Comments cues to lift during exhale only - handout issued Sidelying Exercises clamshell Sidelying Exercise back to wall Name Equipment Used R X 15 with band L X 15 with and w/o band Comments verbal and visual cues sidelying hip abduction Sidelying Exercise back to wall Name Reps/Minutes R X 15 with band L X 15 with and w/o band Comments verbal and visual cues Sitting Exercises Piriformis stretch Side bilateral Reps/Minutes 60 sec each LE X 2 Comments verbal cues hip abd band Sitting Exercise hip abd with band Name Resistance level 4 Reps/Minutes 60 sec Standing Exercises Hip ext Standing Exercise leaning on raised mat Name Reps/Minutes X 12 Comments verbal and visual cues hip abd Standing Exercise hip abd with band at ankles Name Resistance level 4 Reps/Minutes 2 x 10 Self-Care/Home Management Treatment Education Patient Education Body Mechanics,Fall Risk,Home Exercise Program,Joint Protection,Pain Management,Posture Other Education sit-stand training stair training instructions written out on handout PT-OP-T Assessment and Plan Start: 02/06/25 17:12 Freq: Status: Active Protocol: Document 02/21/25 11:35 KW (Rec: 02/21/25 12:16 KW Laptop) Physical Therapy Assessment Rehab Potential Rehabilitation Good Potential Evaluation Complexity Number of Personal 1-2 Factors/ Comorbidities Number of Body 3 Systems Impaired Clinical Stable Presentation at Evaluation Impairments Impairments Activity Tolerance,Balance,Functional Activities, Functional Mobility,Gait,Pain,Posture,ROM,Soft Tissue Mobility,Strength Other Impairments blood sugar management, encouraged CGM Rx from MD Goals Three Impairment lack of strength Short Term Goal (STG patient presents with B hip abd strength 4+/5 ) STG Duration 6 weeks Two Impairment pain with sit to stand Short Term Goal (STG patient no longer has pain in hips, sit to stand ) One Impairment lack of HEP Short Term Goal (STG patient demonstrates independence and compliance with ) HEP Assessment Summary Assessment significant improvement with cortizone injection Physical Therapy Plan Frequency and Duration Frequency of 2x/Week Treatment Duration of 6 treatment (weeks) Plan of Care Start 02/06/25 Date Plan of Care End 05/09/25 Date Therapeutic Interventions Therapeutic Aquatic Therapy,Balance Training,Gait Training,Home Interventions Exercise Program,Joint Mobilizations,Manual Therapy, Neuromuscular Re-education,Patient/Caregiver Education, Self-Care/Home Management,Soft Tissue Mobilization, Taping,Therapeutic Activities,Therapeutic Exercises Modalities Cold Pack/Ice Massage,Electric Stimulation,Hot Packs, Ultrasound Next Visit Focus/Plan Next Note Type Treatment Note Next Visit Plan nu step shuttle HEP progression - review HEP, progress to level 2 band with sidelying hip strengthening
--- NOTE | 2025-03-07 08:28 | PT.OTN ---
Current Diagnoses Other instability, left hip (03/07/25) Physical Therapy Treatment Note PT-OP-A Visit Information Start: 02/06/25 17:12 Freq: Status: Active Protocol: Document 03/07/25 08:22 KW (Rec: 03/07/25 08:28 KW Laptop) Out-Patient Physical Therapy Visit Information Visit Information Visit Type Treatment Note Visit Note Visit [email or web address] Access [email or web address]: [email or web address] Visit Start Time 08:15 Visit Stop Time 08:55 Visit Number 6 Number of CREATIVE GURU Visits 1 PT-OP-B Current Condition Start: 02/06/25 17:12 Freq: Status: Active Protocol: Document 02/12/25 11:37 KW (Rec: 02/12/25 12:48 KW Laptop) Current Condition History of Current Condition Onset Date chronic Current Complaints R > L hip pain 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 x-rays completed. Severe OA L, Moderate on R. he participates in water aerobics 5 x a week at [place] pool enjoys traveling. Prior Functional Status Baseline Function- Independent ADL's Baseline Function- Independent Mobility Personal Factors Other Personal DMII, HTN, back pain, neuropathy Factors That May Effect Therapy/ Recovery PT-OP-C Subjective Start: 02/06/25 17:12 Freq: Status: Active Protocol: Document 03/07/25 08:22 KW (Rec: 03/07/25 08:28 KW Laptop) OP-PT Subjective Patient Comments Patient Comments had some twinges in hip overall, so much better going to [place] next week PT-OP-D Balance Start: 02/06/25 17:12 Freq: Status: Active Protocol: Document 02/06/25 17:13 KW (Rec: 02/06/25 17:29 KW Laptop) OP-PT Balance Assessment Standing Balance Static Standing Normal Balance Ability Dynamic Standing Good Balance Ability Lopez Fall Scale Copyright Permission PT-OP-E Functional Tests Start: 02/06/25 17:12 Freq: Status: Active Protocol: Document 02/06/25 17:13 KW (Rec: 02/06/25 17:29 KW Laptop) Functional Tests Five Times Sit to Stand Test Score 15 Comments pain PT-OP-F Manual Assessment Start: 02/06/25 17:12 Freq: Status: Active Protocol: Document 02/06/25 17:13 KW (Rec: 02/06/25 17:29 KW Laptop) Manual Assessments Soft Tissue Assessment Soft Tissue Mobility tender over B greater trochanters Assessment Joint Mobility Assessment Joint Mobility stiffness B inferior/lateral hip Assessment PT-OP-G Mobility & Gait Start: 02/06/25 17:12 Freq: Status: Active Protocol: Document 02/06/25 17:13 KW (Rec: 02/06/25 17:29 KW Laptop) OP Mobility Evaluation Transfers Sit to Stand wide MIQUEL, standing with excessive lumbar extension, driving thru toes, breath holding OP Gait Assessment Comments Gait Comments wide MIQUEL, slight toe out gait. ill fitting shoes Stair Climbing Evaluation Evaluation Level of Assist On Independent Stairs Technique/Endurance Stair Climbing Ascend and Descend Direction Stair Climbing Step Over Step Technique Comments Stair Climbing cues for nose over toes, driving thru heels Comments coming down with better eccentric control thru hips PT-OP-J Posture/Palpation/Skin Start: 02/06/25 17:12 Freq: Status: Active Protocol: Document 02/06/25 17:13 KW (Rec: 02/06/25 17:29 KW Laptop) Posture Evaluation Position Standing Evaluation View Lateral Head/C-Spine Posture Forward Head T-Spine Posture Increased Kyphosis Thorax Posture Barrel Chested L-Spine Posture Flattened Shoulder Posture (L) Rounded,(R) Rounded Scapula Posture (L) Protracted,(R) Protracted Weight Distribution Weight Shifted Right Palpation Assessment Location hips Palpation Location lateral hips Palpation Findings Soft Tissue Tightness,Tenderness PT-OP-K Range of Motion Start: 02/06/25 17:12 Freq: Status: Active Protocol: Document 02/06/25 17:13 KW (Rec: 02/06/25 17:29 KW Laptop) Lumbar Spine Range of Motion Lumbar Spine Active Testing Position Standing Flexion 50 Extension 10 Rotation Left 15 Rotation Right 20 Lateral Flexion Left 14 Lateral Flexion 6 Right ROM Limitations Soft Tissue Tightness Hip Goniometric Range of Motion Hip right Hip ROM WFL No Testing Position Supine Flexion w/Knee 100 Flexed Straight Leg Raise 80 Internal Rotation 10 External Rotation 25 Comments pain at end-range IR/ER left Hip ROM WFL No Testing Position Supine Flexion w/Knee 100 Flexed Straight Leg Raise 80 Internal Rotation 8 External Rotation 35 Comments stiff, painful Hip ROM Limitations Hip ROM Limitations Soft Tissue Tightness,Bony Restriction,Pain PT-OP-L Special Tests Start: 02/06/25 17:12 Freq: Status: Active Protocol: Document 02/06/25 17:13 KW (Rec: 02/06/25 17:29 KW Laptop) Special Tests Hip Special Tests scour Test Results pos Comments bilateral JULIANE Test Results pos Comments bilateral PT-OP-M Strength Start: 02/06/25 17:12 Freq: Status: Active Protocol: Document 02/06/25 17:13 KW (Rec: 02/06/25 17:29 KW Laptop) Trunk Strength Trunk Manual Muscle Testing Flexion 3+ Fair+ Core Stabilization poor control of IO/TA, breath holding patterns Hip Strength Hip Manual Muscle Testing rigth Flexion (L2) 4- Good- Extension (S1) 4- Good- Abduction 4- Good- Left Flexion (L2) 4- Good- Extension (S1) 4- Good- Abduction 4- Good- PT-OP-Q Treatments Start: 02/06/25 17:12 Freq: Status: Active Protocol: Document 03/07/25 08:22 KW (Rec: 03/07/25 08:28 KW Laptop) Cardio Equipment Recumbent Stepper (Sci-Fit) Duration (Minutes) 10 Resistance 2 Seat Position 13 Gym Equipment Shuttle Recovery squats, heel raises Details 67# B squats, Reps/Time 2X15 Therapeutic Ball supine ball Exercise Details supine hamstring curls, LTR, bridging Body Position Supine Reps/Duration 1 min each Therapeutic Exercises Supine Exercises Mod julio cesar stretch Supine Exercise Name HEP Side bilateral Reps/Minutes 60 sec X 1 each Comments with AROM knee flexion hip er stretch Side bilateral Reps/Minutes 3 x 30 sec Comments hand to push - handout issued bridge Supine Exercise Name pillow between knees Side bilateral Reps/Minutes 10 Comments cues to lift during exhale only - handout issued Sidelying Exercises clamshell Sidelying Exercise back to wall Name Equipment Used R X 15 with band L X 15 with and w/o band Comments verbal and visual cues sidelying hip abduction Sidelying Exercise back to wall Name Reps/Minutes R X 15 with band L X 15 with and w/o band Comments verbal and visual cues Sitting Exercises Piriformis stretch Side bilateral Reps/Minutes 60 sec each LE X 2 Comments verbal cues hip abd band Sitting Exercise hip abd with band Name Resistance level 4 Reps/Minutes 60 sec Manual Therapy Treatment Consent Patient gave verbal Yes consent for manual treatment Joint Mobilizations hips Comments long leg traction 20 degrees, towel around ankle video taken for partner to help at home PT-OP-T Assessment and Plan Start: 02/06/25 17:12 Freq: Status: Active Protocol: Document 03/07/25 08:22 KW (Rec: 03/07/25 08:28 KW Laptop) Physical Therapy Assessment Goals Three Impairment lack of strength Short Term Goal (STG patient presents with B hip abd strength 4+/5 ) STG Duration 6 weeks Two Impairment pain with sit to stand Short Term Goal (STG patient no longer has pain in hips, sit to stand ) One Impairment lack of HEP Short Term Goal (STG patient demonstrates independence and compliance with ) HEP Assessment Summary Assessment making gains
--- NOTE | 2025-03-20 16:10 | PT.OTN ---
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 was able to go [employer], guide helped him get in'out of [employer] OP-PT Pain Assessment Location hips Pain Location lateral hips Details Description Aching,Burning,Cramping,Dull,Pinching,Pulling,Sharp, Spasm,Tender Frequency Frequent Pain Alleviating Cold,Heat,Medication Factors Pain Aggravating Position,Changing Position,ADL's,Activity,Exercise, Factors Standing,Sitting,Walking Other Pain pool aerobics Alleviating Factors Hip Goniometric Range of Motion Hip right Hip ROM WFL No Testing Position Supine Flexion w/Knee 100 Flexed Straight Leg Raise 80 Internal Rotation 10 External Rotation 25 Comments pain at end-range IR/ER left Hip ROM WFL No Testing Position Supine Flexion w/Knee 100 Flexed Straight Leg Raise 80 Internal Rotation 8 External Rotation 35 Comments stiff, painful Hip ROM Limitations Hip ROM Limitations Soft Tissue Tightness,Bony Restriction,Pain Hip Strength Hip Manual Muscle Testing rigth Flexion (L2) 4 Good Extension (S1) 4 Good Abduction 4 Good Left Flexion (L2) 4 Good Extension (S1) 4 Good Abduction 4 Good Cardio Equipment Recumbent Stepper (Sci-Fit) Duration (Minutes) 10 Resistance 2 Seat Position 13 Gym Equipment Shuttle Recovery squats, heel raises Details 67# B squats, Reps/Time 2X15 Shuttle Rebound AP ML Exercise Details wt shift AP/ML Therapeutic Ball BOSU Ball Size/Color wt shifting blue side AP/ML Reps/Duration x 20 ea supine ball Exercise Details supine hamstring curls, LTR, bridging Body Position Supine Reps/Duration 1 min each Sport Cord 4 way walks Exercise Details orange cord Reps/Duration x10 Therapeutic Exercises Supine Exercises Mod julio cesar stretch Supine Exercise Name HEP Side bilateral Reps/Minutes 60 sec X 1 each Comments with AROM knee flexion hip er stretch Side bilateral Reps/Minutes 3 x 30 sec Comments hand to push - handout issued bridge Supine Exercise Name pillow between knees Side bilateral Reps/Minutes 10 Comments cues to lift during exhale only - handout issued Sidelying Exercises hip abduction Sidelying Exercise clamshells Name Resistance blue band Reps/Minutes 2 x 10 clamshell Sidelying Exercise back to wall Name Equipment Used R X 15 with band L X 15 with and w/o band Comments verbal and visual cues sidelying hip abduction Sidelying Exercise back to wall Name Reps/Minutes R X 15 with band L X 15 with and w/o band Comments verbal and visual cues Sitting Exercises Piriformis stretch Side bilateral Reps/Minutes 60 sec each LE X 2 Comments verbal cues hip abd band Sitting Exercise hip abd with band Name Resistance level 4 Reps/Minutes 60 sec Standing Exercises Hip ext Standing Exercise leaning on raised mat Name Reps/Minutes X 12 Comments verbal and visual cues hip abd Standing Exercise hip abd with band at ankles Name Resistance level 4 Reps/Minutes 2 x 10 Self-Care/Home Management Treatment Education Patient Education Body Mechanics,Fall Risk,Home Exercise Program,Joint Protection,Pain Management,Posture Other Education sit-stand training stair training instructions written out on handout Physical Therapy Assessment Rehab Potential Rehabilitation Good Potential Impairments Impairments Activity Tolerance,Balance,Functional Activities, Functional Mobility,Gait,Pain,Posture,ROM,Soft Tissue Mobility,Strength Other Impairments blood sugar management, encouraged CGM Rx from MD Goals Three Impairment lack of strength Short Term Goal (STG patient presents with B hip abd strength 4+/5 ) STG Duration 6 weeks Two Impairment pain with sit to stand Short Term Goal (STG patient no longer has pain in hips, sit to stand ) One Impairment lack of HEP Short Term Goal (STG patient demonstrates independence and compliance with ) HEP Assessment Summary Assessment making gains in strength, pain. CORE continues to be a challenge Physical Therapy Plan Frequency and Duration Frequency of 2x/Week Treatment Duration of 6 treatment (weeks) Plan of Care Start 02/06/25 Date Plan of Care End 05/09/25 Date Therapeutic Interventions Therapeutic Aquatic Therapy,Balance Training,Gait Training,Home Interventions Exercise Program,Joint Mobilizations,Manual Therapy, Neuromuscular Re-education,Patient/Caregiver Education, Self-Care/Home Management,Soft Tissue Mobilization, Taping,Therapeutic Activities,Therapeutic Exercises Modalities Cold Pack/Ice Massage,Electric Stimulation,Hot Packs, Ultrasound Next Visit Focus/Plan Next Note Type Treatment Note Next Visit Plan nu step shuttle HEP progression - review HEP, progress to level 2 band with sidelying hip strengthening
--- NOTE | 2025-04-18 10:30 | PT.OPDS ---
Current Diagnoses Other instability, left hip (03/20/25) Visit Care Team Role Provider Type Daphnie Ewing DO Attending Provider Physician Family Provider Primary Care Provider Referring Provider Specialty: Medical Address: [address] [place] [address], [address], [place], [address] Email: [email or web address] Visit Number Visit Number 7 Discharge Summary PT OP: Lower Back/Lower Extremity Start: 03/20/25 15:21 Freq: Status: Active Protocol: Document 04/18/25 10:29 KW (Rec: 04/18/25 10:30 KW Laptop) Out-Patient Physical Therapy Visit Information Visit Information Visit Type Discharge Summary Physical Therapy Assessment Goals Three Impairment lack of strength Short Term Goal (STG patient presents with B hip abd strength 4+/5 ) STG Duration 6 weeks Two Impairment pain with sit to stand Short Term Goal (STG patient no longer has pain in hips, sit to stand ) One Impairment lack of HEP Short Term Goal (STG patient demonstrates independence and compliance with ) HEP Physical Therapy Plan Discharge Physical Therapy Discharge Reasons No Longer Attending PT
== END 2025-04-21 14:25 | disposition home or self-care (01) ==
LOC: PHYS 15:15
PROVIDERS: Family Provider Family Medicine; PCP Family Medicine; Referring Provider Family Medicine; Visit Provider Family Medicine
DX: M25.352 Other instability, left hip (principal)
CPT/HCPCS: 97110; 97140; 97161; 97530